=== PATIENT | male | born 1945 | race Caucasian/White ===

== ENCOUNTER 2017-06-15 09:52 | Inpatient (IN) ==
[2017-06-15 10:26] LABS: Basophils % 0.3 %; Eosinophils # 0.1 K/mcL (0.0-0.6); Eosinophils % 1.7 %; Hematocrit 42.3 % (37.5-50.1); Hemoglobin 14.2 g/dL (12.9-16.9); Immature Granulocytes % 0.3 % (0-4); Lymphocytes # 1.5 K/mcL (0.6-4.6); Lymphocytes % 24.9 %; Mean Corpuscular HGB Conc 33.6 g/dL (31.6-35.5); Mean Corpuscular Hemoglobin 29.8 pg (28.0-33.3); Mean Corpuscular Volume 88.9 fL (83.0-100.0); Mean Platelet Volume 9.4 fL (9.4-12.4); Monocytes # 0.4 K/mcL (0.0-1.3); Monocytes % 6.1 %; Platelet Count 173 K/mcL (140-400); Red Blood Count 4.76 M/mcL (4.19-5.50); Segmented Neutrophils % 66.7 %
[2017-06-15 10:31] LABS: INR 1.1; Prothrombin Time 12.4 Seconds (9.4-12.1)
[2017-06-15 10:33] LABS: Activated Partial Thrombo Time 34.2 Seconds (26.0-36.0)
[2017-06-15 10:40] LABS: BUN/Creatinine Ratio 24 (6-26); Blood Urea Nitrogen 27 mg/dL (8-26); Carbon Dioxide 25 mEq/L (19-29); Chloride 107 mEq/L (98-109); Glucose 135 mg/dL (70-99); Osmolality,Calculated 299 (280-300); Potassium 4.2 mEq/L (3.5-4.5); Sodium 141 mEq/L (136-145); eGFR For African Americans > 60 (> 60); eGFR For Non-African Americans > 60 (> 60)
[2017-06-15 10:41] LABS: Calcium 9.4 mg/dL (8.6-10.8)
[2017-06-15 10:42] LABS: Albumin 3.7 g/dL (3.5-5.0); Albumin/Globulin Ratio 0.9 (1.1-2.2); Bilirubin,Direct 0.3 mg/dL (0.0-0.5); Bilirubin,Indirect 0.4 mg/dL (0.0-1.2); Bilirubin,Total 0.7 mg/dL (0.2-1.2); Total Protein 7.7 g/dL (6.0-8.3)
[2017-06-15] MEDS ORDERED: 0.9 % Sodium Chloride 1,000 ML IVC ONE (10:42)
--- NOTE | 2017-06-15 10:42 | Emergency Department Note ---
Disposition Clinical Impression: NSTEMI (non-ST elevated myocardial infarction) Disposition: Admitted As Inpatient Condition: Good Referrals: Gareth Ojeda MD [Primary Care Provider] - Forms: ED Satisfaction Letter Time of Disposition: 11:15 Chest Pain HPI - General Chief Complaint: ED Chest Pain Stated Complaint: chest pain Time Seen by Provider: 06/15/17 10:03 Source: patient Limitations: no limitations Vital Signs Reviewed: Yes Nursing Notes Reviewed: Yes - History of Present Illness HPI Narrative: 71 year old male presents to the ED with complaints of left sided chest pain that radaites into his left side of his neck and arm and states that he has multiple stents that were placed over 10-15 years ago at [facility] and states that he has been experiencin incresd exertional dyspnea for exampled hwne he walks from his brohter house to his house which is about 20 feet away. Sam states that he has been taking care of his brother who is currently recoering from a heart attack as well. Sam is currently chest pain free although these symptoms started about 36 hours ago. Sam states that he aso has been nauseated with these chest pain and denies diaphreosis. Severity scale (1-10): 2 - Related Data Home Medications Medication Instructions Recorded Confirmed Cholecalciferol (Vitamin D3) 10,000 unit PO MO 12/01/16 12/01/16 [Vitamin D3] Clopidogrel [Plavix] 75 mg PO DAILY 12/01/16 12/01/16 Lisinopril [Zestril] 10 mg PO DAILY 12/01/16 12/01/16 Metoprolol [Lopressor] 25 mg PO BID 12/01/16 12/01/16 Nitroglycerin [Nitrostat] 0.4 mg SL Q5M PRN 12/01/16 12/01/16 diazePAM [Valium] 5 mg PO TID 12/01/16 12/01/16 Previous Rx's Medication Instructions Recorded Aspirin Enteric Coated [Aspirin EC] 81 mg PO DAILY #30 tablet. 07/12/16 Atorvastatin [Lipitor] 40 mg PO HS #30 tablet 07/12/16 Lidocaine Patch [Lidoderm 5% patch] 1 each TP DAILY PRN #3 adh..patch 04/12/17 Allergies Allergy/AdvReac Type Severity Reaction Status Date / Time morphine Allergy Hives Verified 06/15/17 10:00 Constitutional: Denies: fever, chills, weakness, weight change Eyes: Denies: eye pain, eye discharge, vision change ENT ED: Denies: ear pain, throat pain, dental pain, hearing loss, epistaxis, congestion, dysphagia Cardiovascular: Reports: chest pain, dyspnea on exertion. Denies: palpitations , edema, syncope Respiratory: Denies: cough, dyspnea, wheezes, hemoptysis, stridor Gastrointestinal: Denies: abdominal pain, nausea, vomiting, diarrhea, constipation, hematemesis, melena, hematochezia Genitourinary: Denies: urgency, dysuria, frequency, hematuria Musculoskeletal: Denies: back pain, neck pain, arthralgia, myalgia Integumentary: Denies: rash, abrasion, lesions Neurological: Denies: headache, weakness, numbness, paresthesias, confusion, abnormal gait, vertigo Psychiatric: Denies: anxiety, depression, suicidal thoughts, homicidal thoughts , auditory hallucinations, visual hallucinations Endocrine: Denies: fatigue Hematological/Lymphatic: Denies: easy bleeding, easy bruising Allergic/Immunologic: Denies: facial swelling, urticaria Chest Pain PMH - Past Medical History Medical history: Reports: cancer, coronary artery disease, hypertension, myocardial infarction Surgical history: Reports: cholecystectomy, other Psychiatric history: Reports: anxiety, depression, PTSD - Social History Smoking Status: Never smoker Alcohol use: Reports: none Drug use: Reports: none Physical Exam - General Limitations: no limitations General appearance: alert, in no apparent distress - Head Head exam: atraumatic, normocephalic, normal inspection - Eye Eye exam: Present: normal appearance, PERRL, EOMI - Expanded Eye Exam Pupils: Left: reactive - ENT ENT exam: normal exam, normal oropharynx, mucous membranes moist - Expanded ENT Exam External ear exam: Present: normal external inspection Mouth exam: Present: normal external inspection Teeth exam: Present: normal inspection Throat exam: Present: normal inspection - Neck Neck exam: Present: normal inspection, full ROM, trachea midline - Chest Chest inspection: Present: normal inspection, symmetric chest wall rise - Respiratory Respiratory exam: Present: normal lung sounds bilaterally - Cardiovascular Cardiovascular exam: Present: regular rate, normal rhythm, normal heart sounds - Abdominal Exam Abdominal exam: Present: soft, Non-Tender. Absent: tenderness, distention, guarding, rebound, rigidity - Extremities Exam Extremities exam: Present: normal inspection, full ROM. Absent: tenderness, pedal edema - Expanded Upper Extremity Exam Shoulder exam: Present: normal inspection, full ROM Arm exam: Present: normal inspection, full ROM Elbow exam: Present: normal inspection, full ROM Forearm/Wrist exam: Present: normal inspection, full ROM Hand exam: Present: normal inspection, full ROM Vascular exam: Normal: capillary refill, radial pulse - Expanded Lower Extremity Exam Hip/Pelvis exam: Present: normal inspection, full ROM Upper leg exam: Present: normal inspection, full ROM Knee exam: Present: normal inspection, full ROM Lower leg exam: Present: normal inspection, full ROM Ankle exam: Present: normal inspection, full ROM Foot/toe exam: Present: normal inspection, full ROM Neurovascular/Tendon exam: Absent: motor deficit, sensory deficit, tendon deficit - Back Exam Back exam: Present: normal inspection, full ROM. Absent: tenderness - Neurological Exam Neurological exam: Present: alert, oriented X3 - Expanded Neurological Exam Patient oriented to: Present: person, place, time Coma Scale Eye Opening: Spontaneous Coma Scale Motor Response: Obeys Commands Coma Scale Verbal Response: Oriented Coma Scale Total: 15 - Psychiatric Psychiatric exam: Present: normal affect, normal mood - Skin Skin exam: Present: warm, dry, intact, normal color Course Course Narrative: we will do cardiopulmonary workup including a troponin, highly suspicious for unstable angina. - Reevaluation(s) Reevaluation #1: sam troponin level is 0.28, we will start heparin drip for low dose ACS and consult cardiology. Time: 11:06 - Consultations Consultation #1: discusse case with Dr. Colin and he does not think sam will need nitro drip at this time because he is pain free. WE will admit to medicine with consult to cards. Time: 11:15 Consultation #2: discussed case with Dr. Kumar and he accepts sam for admisison. Time: 11:15 Vital Signs Temperature 98.2 F 06/15/17 09:52 Pulse Rate 71 06/15/17 09:52 Respiratory Rate 18 06/15/17 09:52 Blood Pressure 136/81 06/15/17 09:52 O2 Sat by Pulse Oximetry 97 06/15/17 09:52 Temperature 98.2 F 06/15/17 09:52 Pulse Rate 67 06/15/17 11:00 Respiratory Rate 20 06/15/17 11:00 Blood Pressure 129/77 06/15/17 11:00 O2 Sat by Pulse Oximetry 98 06/15/17 11:00 Oxygen Delivery Oxygen Delivery Room Air Chest Pain - Medical Records Medical records reviewed: Yes I reviewed the patient's medical records. - Lab Data Lab results reviewed: Yes I reviewed the patient's lab results. Result diagrams: 06/15/17 10:13 06/15/17 10:13 Lab Results 06/15/17 06/15/17 06/15/17 Range/Units 10:13 10:13 10:13 WBC (4.3-11.1) K/mcL RBC (4.19-5.50) M/mcL Hgb (12.9-16.9) g/dL Hct (37.5-50.1) % MCV (83.0-100.0) fL MCH (28.0-33.3) pg MCHC (31.6-35.5) g/dL RDW (11.5-14.5) % Plt Count (140-400) K/mcL MPV (9.4-12.4) fL Immature Gran % (0-4) % Seg Neutrophils % % Lymphocytes % % Monocytes % % Eosinophils % % Basophils % % Neutrophils # (1.6-8.9) K/mcL Lymphocytes # (0.6-4.6) K/mcL Monocytes # (0.0-1.3) K/mcL Eosinophils # (0.0-0.6) K/mcL Basophils # (0.0-0.2) K/mcL PT 12.4 H (9.4-12.1) Seconds INR 1.1 APTT 34.2 (26.0-36.0) Seconds Sodium (136-145) mEq/L Potassium (3.5-4.5) mEq/L Chloride (98-109) mEq/L Carbon Dioxide (19-29) mEq/L BUN (8-26) mg/dL Creatinine (0.72-1.25) mg/dL Est GFR ( Amer) (> 60) Est GFR (Non-Af Amer) (> 60) BUN/Creatinine Ratio (6-26) Glucose (70-99) mg/dL Calculated Osmolality (280-300) Calcium (8.6-10.8) mg/dL Total Bilirubin 0.7 (0.2-1.2) mg/dL Direct Bilirubin 0.3 (0.0-0.5) mg/dL Indirect Bilirubin 0.4 (0.0-1.2) mg/dL AST 23 (5-34) Units/L ALT 19 (0-55) Units/L Alkaline Phosphatase 90 (38-126) Units/L Troponin I (0-0.03) ng/mL B-Natriuretic Peptide 438 H (0-100) pg/mL Serum Total Protein 7.7 (6.0-8.3) g/dL Albumin 3.7 (3.5-5.0) g/dL Globulin 4.0 H (2.4-3.5) g/dL Albumin/Globulin Ratio 0.9 L (1.1-2.2) Lipase 48 (8-78) Units/L 06/15/17 06/15/17 06/15/17 Range/Units 10:13 10:13 10:13 WBC 5.9 (4.3-11.1) K/mcL RBC 4.76 (4.19-5.50) M/mcL Hgb 14.2 (12.9-16.9) g/dL Hct 42.3 (37.5-50.1) % MCV 88.9 (83.0-100.0) fL MCH 29.8 (28.0-33.3) pg MCHC 33.6 (31.6-35.5) g/dL RDW 12.0 (11.5-14.5) % Plt Count 173 (140-400) K/mcL MPV 9.4 (9.4-12.4) fL Immature Gran % 0.3 (0-4) % Seg Neutrophils % 66.7 % Lymphocytes % 24.9 % Monocytes % 6.1 % Eosinophils % 1.7 % Basophils % 0.3 % Neutrophils # 4.0 (1.6-8.9) K/mcL Lymphocytes # 1.5 (0.6-4.6) K/mcL Monocytes # 0.4 (0.0-1.3) K/mcL Eosinophils # 0.1 (0.0-0.6) K/mcL Basophils # 0.0 (0.0-0.2) K/mcL PT (9.4-12.1) Seconds INR APTT (26.0-36.0) Seconds Sodium 141 (136-145) mEq/L Potassium 4.2 (3.5-4.5) mEq/L Chloride 107 (98-109) mEq/L Carbon Dioxide 25 (19-29) mEq/L BUN 27 H (8-26) mg/dL Creatinine 1.14 (0.72-1.25) mg/dL Est GFR ( Amer) > 60 (> 60) Est GFR (Non-Af Amer) > 60 (> 60) BUN/Creatinine Ratio 24 (6-26) Glucose 135 H (70-99) mg/dL Calculated Osmolality 299 (280-300) Calcium 9.4 (8.6-10.8) mg/dL Total Bilirubin (0.2-1.2) mg/dL Direct Bilirubin (0.0-0.5) mg/dL Indirect Bilirubin (0.0-1.2) mg/dL AST (5-34) Units/L ALT (0-55) Units/L Alkaline Phosphatase (38-126) Units/L Troponin I 0.28 H* (0-0.03) ng/mL B-Natriuretic Peptide (0-100) pg/mL Serum Total Protein (6.0-8.3) g/dL Albumin (3.5-5.0) g/dL Globulin (2.4-3.5) g/dL Albumin/Globulin Ratio (1.1-2.2) Lipase (8-78) Units/L - Radiology Data Radiology results reviewed: Yes I reviewed the patient's radiology results. - EKG Data EKG attestation: Yes I reviewed and interpreted this EKG. EKG results narrative: NSR with rate of 80. NO STEMI. normla intervlas. no change from 111/26/16. 1003 Heart Score - Score History: Moderately Suspicious EKG: Normal Age: Greater than 65 Risk Factors: Equal/Greater than 3 risk factor or history of atherosclerotic disease Troponin: Greater than 3x normal limit HEART Score Total: 7
[2017-06-15] MEDS ORDERED: Aspirin 325 MG TABLET PO ONE (10:43)
[2017-06-15] MEDS ORDERED: *HR* Heparin 5,000 UNIT/ML VIAL IVP ONE (10:56)
[2017-06-15] MEDS ORDERED: *HR* Heparin 5,000 UNIT/ML VIAL IVP PRN ×2 (10:56)
[2017-06-15] MEDS ORDERED: Heparin 25,000 UNIT/500 ML D5W 25,000 UNIT/500 ML MLS IVC SCH (11:00)
[2017-06-15] MEDS ORDERED: Nitroglycerin 0.4 MG TAB.SUBL SL PRN (13:37)
[2017-06-15] MEDS ORDERED: Naloxone 0.4 MG/ML INJ IVP PRN (13:39)
--- NOTE | 2017-06-15 14:01 | Internal Med History&Physical ---
<AbhijitmichelaEdin singh Tobin - Last Filed: 06/15/17 20:29> Date of Encounter: 06/15/17 Internal Medicine - H&P: HPI History of present illness: Mr. Moran is a 71 year old male Internal Medicine - H&P: Meds Aspirin Enteric Coated [Aspirin EC] 81 mg PO DAILY #30 tablet. 07/12/16 [Rx] Cholecalciferol (Vitamin D3) [Vitamin D3] 10,000 unit PO MO 12/01/16 [History] Clopidogrel [Plavix] 75 mg PO DAILY 12/01/16 [History] Lisinopril [Zestril] 10 mg PO DAILY 12/01/16 [History] Metoprolol [Lopressor] 25 mg PO BID 12/01/16 [History] Nitroglycerin [Nitrostat] 0.4 mg SL Q5M PRN 12/01/16 [History] diazePAM [Valium] 5 mg PO TID 12/01/16 [History] Gabapentin [Neurontin] 300 mg PO QPM 06/15/17 [History] Isosorbide MONOnitrate (24 HR) [Imdur] 30 mg PO DAILY 06/15/17 [History] Paroxetine HCl [Paxil] 40 mg PO DAILY 06/15/17 [History] Tamsulosin [Flomax] 0.4 mg PO DAILY 06/15/17 [History] 3 Allergy/AdvReac Type Severity Reaction Status Date / Time morphine Allergy Hives Verified 06/15/17 10:00 All Systems PM: A 10-system review of systems was performed and is negative for pertinent findings except as documented above in the HPI. - Constitutional Vitals: Temp Pulse Resp BP Pulse Ox 98.2 F 72 20 127/116 99 06/15/17 09:52 06/15/17 17:58 06/15/17 14:14 06/15/17 14:14 06/15/17 17:54 Internal Med - H&P Results - Labs CBC & Chem 7: 06/15/17 10:13 06/15/17 10:13 Labs: Cardiac Enzymes 06/15/17 Range/Units 17:10 Troponin I 0.41 H* (0-0.03) ng/mL - Attending Attestation I have personally performed face to face evaluation on this patient. I have reviewed and agree with the care plan. History and Exam by me shows: <Rome Zaidi - Last Filed: 06/15/17 22:07> Date of Encounter: 06/15/17 Time of Encounter: 13:55 Assessment and Plan (1) NSTEMI (non-ST elevated myocardial infarction) Current visit: Yes Status: Acute H/o CAD requiring multiple stents. Strong family h/o CAD.Denies an CP while at rest but notes CP with exertion, no respiratory distress. Hemodynamically stable. Heparin gtt started Will hold on nitro as the patient denies CP at rest. Cardio consulted; still needs to see, anticipating [facility] restart ASA, BB, ALDAIR, plavix, and Imdur SL nitro for CP serial troponins echocardiogram continuous tele, SPO2, respiratory support O2 NC prn CBC, CMP in morning (2) HTN (hypertension) Current visit: Yes Status: Chronic H/O HTN. Remains hemodynamically stable, in no distress at this time. Restart Imdur, ALDAIR, and BB Qualifiers: Hypertension type: essential hypertension Qualified Code(s): I10 - Essential (primary) hypertension (3) CAD (coronary artery disease) Current visit: No Status: Chronic h/o CAD with multiple stents. Troponin elevated in the setting of CP. Likely NSTEMI, anticipate [facility], cardio to see. Restart BB, ALDAIR, Plavix, Imdur and ASA. Qualifiers: Coronary Disease-Associated Artery/Lesion type: [place] artery [place] vs. transplanted heart: [place] heart Associated angina: without angina Qualified Code(s): I25.10 - Atherosclerotic heart disease of [place] coronary artery without angina pectoris (4) DVT prophylaxis Current visit: Yes Status: Acute On a heparin gtt for NSTEMI. Start SC prophylaxis when heparin gtt DC'D Internal Medicine - H&P: HPI Chief complaint: CHEST PAIN Admitted From: Home Plans for Post Hospital Care: Home History of present illness: Mr. Moran is a 71 year old male with a PMH of CAD, HTN, anxiety/depression and [place] with multiple stents. Presents to [facility] today with a 2 day h/o sharp left sided CP 7/10 with radiation to the left neck and arm. He reports that he is increasingly dyspneic with exertion, the CP is worse with activity and eases with rest. Denies any diaphoresis, extremity swelling, weight gain, cough, fevers, or chills. His trop was elevated at 0.28, Past Med Surg Social Fam HX - Past Medical History Medical history: cancer, coronary artery disease, hypertension, myocardial infarction Psychiatric history: anxiety, depression, PTSD - Past Surgical History Surgical History: cholecystectomy, other - Social History Smoking Status: Never smoker Smokeless Tobacco Status: No Alcohol use: none Drug use: none - Family History Mother Adopted: No Family Member Ethnicity: Non- Living Status: Hx Family Cardiac Disorders: Yes Hx Family Respiratory Disorders: No Hx Family Cancer: Yes Hx Family GI Disorders: No Hx Family Endocrine Disorder: No Hx Family Neuromuscular Disorders: No Hx Family Neurologic Disorders: No Hx Family HEENT Disorders: No Hx Family Autoimmune Disorders: No Brother Race: Family Member Ethnicity: Non- Hx Family Cardiac Disorders: Yes ([place]) Hx Family Endocrine Disorder: Yes (DM) All Systems PM: A 10-system review of systems was performed and is negative for pertinent findings except as documented above in the HPI. - Constitutional Constitutional: no chills, no excessive sweating, no fatigue, no fever(s), no night sweats, no weakness, no weight gain, no weight loss - EENT Nose, mouth and throat: no dysphagia, no nasal discharge, no neck pain, no sore throat - Cardiovascular Cardiovascular ROS IM: as per HPI, chest pain, dyspnea on exertion, no edema, no irregular heart rhythm, no lightheadedness, no orthopnea, no palpitations, no syncope - Respiratory Respiratory: as per HPI, dyspnea on exertion, no cough, no dyspnea, no wheezing , no pain on inspiration, no chest congestion, no excessive phlegm production, no pain with cough - Gastrointestinal Gastrointestinal: no abdominal pain, no diarrhea, no hematemesis, no hematochezia, no melena, no nausea, no vomiting - Genitourinary Genitourinary ROS male: no dysuria - Musculoskeletal Musculoskeletal ROS IM: no numbness, no tingling - Neurological Neurological ROS: no confusion, no convulsions, no focal weakness, no numbness, no tingling, no tremor(s) - Constitutional Vitals: Temp Pulse Resp BP Pulse Ox 98.2 F 68 20 151/84 99 06/15/17 09:52 06/15/17 13:00 06/15/17 13:00 06/15/17 13:00 06/15/17 13:00 General appearance: Present: cooperative, A&O X 3, no acute distress, answers questions appropriately - Head Head exam: Present: atraumatic, normocephalic - Eye Eye exam: Present: PERRL, conjuntiva pink, sclera anicteric Pupils: Present: PERRL - Neck Neck exam general surgery: Present: supple, trachea midline. Absent: lymphadenopathy - Respiratory Respiratory exam: Present: decreased breath sounds (BL posterior bases), CTAB. Absent: accessory muscle use, rales, rhonchi, wheezes - Cardiovascular Cardiovascular exam: Present: RRR, +S1, +S2. Absent: diastolic murmur, gallop, irregular rhythm, JVD, rubs, systolic murmur - GI/Abdominal GI/Abdominal exam: Present: normal bowel sounds, soft, no peritoneal signs. Absent: distended, tenderness - Extremities Exam Extremities exam: Present: warm, radial pulses palpable and symmetrical. Absent : calf tenderness, cyanotic, pedal edema - Neurological Exam Neurological exam: Present: CN II-XII intact, oriented X3, no focal deficits. Absent: pronater drift, facial droop, speech deficit - Skin Skin exam: Present: dry, intact Internal Med - H&P Results - Labs CBC & Chem 7: 06/15/17 10:13 06/15/17 10:13 - EKG Data -: EKG Interpreted by Myself EKG shows normal: sinus rhythm - EKG Data When compared to previous EKG: there is no significant change - Diagnostic Studies Chest x-ray Status: image reviewed by me Additional comments: no acute pulmonary process
--- NOTE | 2017-06-15 14:34 | Cardiology Consult Note ---
Date of Encounter: 06/15/17 Time of Encounter: 14:34 Assessment and Plan (1) NSTEMI (non-ST elevated myocardial infarction) Current Visit: Yes Status: Acute NSTEMI in the setting of underlying CAD/stable angina history Troponin 0.28 EKG review showing NSR, no T wave or ST changes Hemodynamically stable, No arrhythmias or acute, severe ischemic cardiomyopathy suggesting urgent intervention Restarted home meds - ASA, Plavix, ACEi, Lopressor. Patient not taking statin d /t cost. Continue medical management with Heparin Drip Cardiac monitoring, Telemetry Will plan for [facility] tomorrow if patient is agreeable. (2) CAD (coronary artery disease) Current Visit: No Status: Chronic 2005: Heart cath demonstrated proximal LAD 50%, mid LAD 60%, diagonal 1 90%, mid RCA 70%, PDA 80-90% and stenting to OM1 100% lesion - Patient declined CABG at that time 2010: Abnormal stress test - Refused further intervention 09/24/16: Nuclear stress test performed on 09/24/16 showing EF 45%, mild systolic dysfunction with a medium-large sized, sever intensity, fixed perfusion defect involving the basal-mid inferolateral wall, basal-mid anterolateral wall and apical lateral wall. No evidence of reversible myocardial ischemia Patient is currently taking Plavix 75, ASA 81, Zestril 10, Atorvastatin 80 (not taking d/t cost), Metoprolol Tartate 25mg BID See above for NSTEMI management. Qualifiers: Coronary Disease-Associated Artery/Lesion type: [place] artery [place] vs. transplanted heart: [place] heart Associated angina: without angina Qualified Code(s): I25.10 - Atherosclerotic heart disease of [place] coronary artery without angina pectoris (3) HTN (hypertension) Current Visit: Yes Status: Chronic Appears to be stable at this time. Qualifiers: Hypertension type: essential hypertension Qualified Code(s): I10 - Essential (primary) hypertension (4) Dyslipidemia Current Visit: Yes Status: Acute Not currently taking Atorvastatin 80 d/t cost Discussion w patient/family: The assessment and plan as outlined above was discussed with the patient and/or family members who expressed understanding and agreement. All questions were answered. Thank you for involving us in the care of your patient. Please call with any questions. History of Present Illness Consult date: 06/15/17 Chief complaint: chest pain History of present illness: Mr. Moran is a very pleasant 71 year old male with a past medical history of CAD, dyslipidemia, HTN, RADHA, anxiety, depression and BPH who presented to the [facility] ED with a chief complaint of chest pain. Patient drove himself to the ED after one week of worsening chest pain on exertion when he walks to his brother' s trailer to take care of him. Reports the pain is burning in nature and radiates to his neck and left arm. He goes on to state the pain subsides at rest and only occurs on exertion. Denies any lightheadedness, n/v, palpitations or diaphoresis. He reports having a prescription for nitro but refused to take this before coming into the ED. On arrival, his trop 0.28, BNP 438 and EKG was NSR without any T wave or ST changes. Patient was given ASA, fluids and heparin drip. He was subsequently admitted via the hospitalist service and cardiology was consulted. On evaluation and EMR review, heart cath in 2005 demonstrated proximal LAD 50%, mid LAD 60%, diagonal 1 90%, mid RCA 70% , PDA 80-90% and stenting to OM1 100% lesion, however patient declined CABG at that time. History of abnormal stress test in 2009 and he again refused further intervention. Most recent report shows a nuclear stress test performed on 09/24/16 showing EF 45%, mild systolic dysfunction with a medium-large sized, sever intensity, fixed perfusion defect involving the basal-mid inferolateral wall, basal-mid anterolateral wall and apical lateral wall. No evidence of reversible myocardial ischemia. Denies any tobacco or EtOH use. Father at 67 of heart disease and mother at 94 of heart disease. Patient has been following Tim Tovar CNP for several years now here in [facility]. We will continue to follow and offer further recommendations and interventions. Past Med Surg Social Fam HX - Past Medical History Medical history: cancer, coronary artery disease, hypertension, myocardial infarction Psychiatric history: anxiety, depression, PTSD - Past Surgical History Surgical History: cholecystectomy, other - Social History Smoking Status: Never smoker Smokeless Tobacco Status: No Alcohol use: none Drug use: none - Family History Brother Race: Family Member Ethnicity: Non- Hx Family Cardiac Disorders: Yes (CO) Hx Family Endocrine Disorder: Yes (DM) Mother Adopted: No Family Member Ethnicity: Non- Living Status: Hx Family Cardiac Disorders: Yes Hx Family Respiratory Disorders: No Hx Family Cancer: Yes Hx Family GI Disorders: No Hx Family Endocrine Disorder: No Hx Family Neuromuscular Disorders: No Hx Family Neurologic Disorders: No Hx Family HEENT Disorders: No Hx Family Autoimmune Disorders: No Medications and Allergies Aspirin Enteric Coated [Aspirin EC] 81 mg PO DAILY #30 tablet. 07/12/16 [Rx] Cholecalciferol (Vitamin D3) [Vitamin D3] 10,000 unit PO MO 12/01/16 [History] Clopidogrel [Plavix] 75 mg PO DAILY 12/01/16 [History] Lisinopril [Zestril] 10 mg PO DAILY 12/01/16 [History] Metoprolol [Lopressor] 25 mg PO BID 12/01/16 [History] Nitroglycerin [Nitrostat] 0.4 mg SL Q5M PRN 12/01/16 [History] diazePAM [Valium] 5 mg PO TID 12/01/16 [History] Gabapentin [Neurontin] 300 mg PO QPM 06/15/17 [History] Isosorbide MONOnitrate (24 HR) [Imdur] 30 mg PO DAILY 06/15/17 [History] Paroxetine HCl [Paxil] 40 mg PO DAILY 06/15/17 [History] Tamsulosin [Flomax] 0.4 mg PO DAILY 06/15/17 [History] 3 Allergy/AdvReac Type Severity Reaction Status Date / Time morphine Allergy Hives Verified 06/15/17 10:00 All Systems Review: A 10-system review of systems was performed and is negative for pertinent findings except as documented above in the HPI. - Constitutional Constitutional: no headache(s) - Cardiovascular Cardiovascular: as per HPI - Respiratory Respiratory: no cough - Gastrointestinal Gastrointestinal: no abdominal pain - Genitourinary Genitourinary: no dysuria - Musculoskeletal Musculoskeletal: no myalgias - Integumentary Integumentary: no erythema - Neurological Neurological: no abnormal speech - Psychiatric Psychiatric: anxiety Physical Examination Vital Signs, Last 4 Hours Pulse Resp BP Pulse Ox 06/15/17 14:14 20 127/116 06/15/17 13:00 68 20 151/84 99 06/15/17 12:30 68 20 148/83 98 General: Conversant (sitting up on bed), No Apparent Distress HEENT: Atraumatic, Normocephaly, Mucus Membranes Moist Neck: No JVD, Normal carotid pulses Cardiac: Reg Rate and Rhythm, Normal S1 and S2, No Murmur Lungs: Normal Breath Sounds, No Wheeze, Rales, Rhonchi Neuro: Alert and responsive, No focal deficits noted Abdomen: Soft, Non-Tender Skin: No rashes noted on visualized skin Musculoskeletal: No Chest Wall Tenderness Extremities: No Clubbing, No Cyanosis, No Edema, Normal Pulses Results 06/15/17 10:13 06/15/17 10:13 - Imaging and Cardiology Chest Xray: report reviewed, image reviewed Stress Test: report reviewed (09/24/16) Echo: report reviewed (09/24/16) - EKG Interpretation EKG results cardiology: personally reviewed, normal ECG Consult Discharge Plan - Plan Referrals: Gareth Ojeda MD [Primary Care Provider] -
[2017-06-15] MEDS: diazePAM 5 MG TABLET PO SCH ×2 (16:47→20:21)
[2017-06-15] MEDS: Gabapentin 300 MG CAPSULE PO SCH (16:47)
--- NOTE | 2017-06-15 17:21 | Electrocardiograph Report ---
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
[2017-06-16 06:11] LABS: Basophils % 0.3 %; Eosinophils # 0.1 K/mcL (0.0-0.6); Eosinophils % 1.9 %; Hematocrit 42.8 % (37.5-50.1); Hemoglobin 14.4 g/dL (12.9-16.9); Immature Granulocytes % 0.3 % (0-4); Lymphocytes # 2.1 K/mcL (0.6-4.6); Lymphocytes % 35.1 %; Mean Corpuscular HGB Conc 33.6 g/dL (31.6-35.5); Mean Corpuscular Hemoglobin 30.1 pg (28.0-33.3); Mean Corpuscular Volume 89.4 fL (83.0-100.0); Mean Platelet Volume 9.4 fL (9.4-12.4); Monocytes # 0.4 K/mcL (0.0-1.3); Neutrophils # 3.3 K/mcL (1.6-8.9); Platelet Count 174 K/mcL (140-400); Red Blood Count 4.79 M/mcL (4.19-5.50); Red Cell Distribution Width 12.1 % (11.5-14.5); Segmented Neutrophils % 55.4 %
[2017-06-16 06:33] LABS: Alanine Aminotransferase 19 Units/L (0-55); Albumin 3.5 g/dL (3.5-5.0); Albumin/Globulin Ratio 0.9 (1.1-2.2); Alkaline Phosphatase 91 Units/L (38-126); Aspartate Amino Transferase 21 Units/L (5-34); BUN/Creatinine Ratio 24 (6-26); Bilirubin,Total 0.5 mg/dL (0.2-1.2); Blood Urea Nitrogen 26 mg/dL (8-26); Calcium 9.5 mg/dL (8.6-10.8); Carbon Dioxide 26 mEq/L (19-29); Chloride 106 mEq/L (98-109); Globulin 4.1 g/dL (2.4-3.5); Glucose 98 mg/dL (70-99); Osmolality,Calculated 297 (280-300); Potassium 4.3 mEq/L (3.5-4.5); Sodium 141 mEq/L (136-145); Total Protein 7.6 g/dL (6.0-8.3); eGFR For African Americans > 60 (> 60); eGFR For Non-African Americans > 60 (> 60)
[2017-06-16] MEDS: Isosorbide MONOnitrate (24 HR) 30 MG TAB.ER.24H PO SCH (08:35)
[2017-06-16] MEDS: diazePAM 5 MG TABLET PO SCH ×3 (08:35→20:29)
[2017-06-16] MEDS: Aspirin Enteric Coated 81 MG Tablet PO SCH (08:35)
[2017-06-16] MEDS ORDERED: Heparin 1,000 UNITS/500 mL NS 500 ML ONE (09:04)
[2017-06-16] MEDS ORDERED: *HR* Heparin 10,000 UNIT/10 ML VIAL ONE (09:04)
[2017-06-16] MEDS ORDERED: 0.9 % Sodium Chloride 1,000 ML ONE ×2 (09:04→09:49)
[2017-06-16] MEDS ORDERED: Nitroglycerin 1,000 MCG/10 ML VIAL IV ONE (09:39)
[2017-06-16] MEDS ORDERED: *HR* Midazolam HCl 2 MG/2 ML VIAL ONE (09:56)
[2017-06-16] MEDS ORDERED: Tirofiban 5 MG/100ML 5 MG/100 ML BAG IV ONE (10:21)
[2017-06-16] MEDS ORDERED: *HR* Ticagrelor 90 MG TABLET ONE (11:22)
--- NOTE | 2017-06-16 11:30 | Pre-Sedation Evaluation ---
Pre-sedation evaluation - Pre-sedation checklist Date of procedure: 06/16/17 Procedure: HEART CATH Recent Vitals: Last Vital Signs Temp 97.8 F 06/16/17 08:45 Pulse 70 06/16/17 08:45 Resp 16 06/16/17 08:45 BP 137/70 06/16/17 08:45 Pulse Ox 100 06/16/17 08:45 H&P (including ROS) documented in medical record: Yes Previous reaction to sedatives/anesthetics: No Dietary Status: NPO after Midnight Airway Assessment: Patient can open mouth completely, TMJ function normal Dentition: dentures removed Possible difficult airway: No ASA Classification *see protocol: CLASS II-Mild systemic disease Plan of Care: Pt appropriate candidate for procedure/moderate/conscious sedation
--- NOTE | 2017-06-16 11:48 | Internal Med Progress Note ---
<Abhinav Aguila - Last Filed: 06/16/17 13:38> Date of Encounter: 06/16/17 Time of Encounter: 11:47 - Assessment and plan (1) NSTEMI (non-ST elevated myocardial infarction) Current Visit: Yes Status: Acute Assessment and plan: s/p C today with OK to mid LAD and multivessel PTCA; patient tolerated procedure well without complications Cardiology consulted, recommended DAPT and continuing ACEi, BB, Imdur Patient does have financial issues affording his statin so social work has been consulted for assistance Plan on DC tomorrow if he remains chest pain free without other overnight events (2) CAD (coronary artery disease) Current Visit: Yes Status: Chronic Assessment and plan: Currently not in chest pain s/p [facility] Continue medical management as above per cardiology Qualifiers: Coronary Disease-Associated Artery/Lesion type: [place] artery [place] vs. transplanted heart: [place] heart Associated angina: without angina Qualified Code(s): I25.10 - Atherosclerotic heart disease of [place] coronary artery without angina pectoris (3) 3-vessel coronary artery disease Current Visit: Yes Status: Chronic Assessment and plan: According to cardiology patient was recommended for CABG but previously declined Will continue medical management as above (4) HTN (hypertension) Current Visit: Yes Status: Chronic Assessment and plan: Blood pressures well controlled today Continue ACEi and BB Qualifiers: Hypertension type: essential hypertension Qualified Code(s): I10 - Essential (primary) hypertension (5) Anxiety Current Visit: Yes Status: Chronic Assessment and plan: Not currently experiencing acute anxiety attacks Continue home Valium and Paxil (6) DVT prophylaxis Current Visit: Yes Status: Acute Assessment and plan: Heparin 5000 units TID - Subjective Interval history: Pt seen and examined. He just returned from his [facility] and states that his chest pain has since resolved and he has no issues with breathing. He denies any fevers, nausea, vomiting, diarrhea or constipation. He does live with his girlfriend and brother and reports no issues with ADL. - Constitutional Vitals: Temp Pulse Resp BP Pulse Ox 97.8 F 70 16 137/70 100 06/16/17 08:45 06/16/17 08:45 06/16/17 08:45 06/16/17 08:45 06/16/17 08:45 General appearance: Present: cooperative, no acute distress, answers questions appropriately - Head Head exam: Present: atraumatic, normocephalic - Eye Eye exam: Present: PERRL, conjuntiva pink, sclera anicteric - Neck Neck exam general surgery: Present: supple, trachea midline. Absent: lymphadenopathy - Respiratory Respiratory exam: Present: CTAB. Absent: accessory muscle use, rales, rhonchi, wheezes - Cardiovascular Cardiovascular exam: Present: RRR, +S1, +S2. Absent: diastolic murmur, gallop, rubs, systolic murmur - GI/Abdominal GI/Abdominal exam: Present: normal bowel sounds, soft, no peritoneal signs. Absent: distended, tenderness - Extremities Exam Extremities exam: Present: warm, radial pulses palpable and symmetrical. Absent : calf tenderness, cyanotic, pedal edema - Neurological Exam Neurological exam: Present: alert, no focal deficits. Absent: facial droop, speech deficit - Skin Skin exam: Present: dry, intact Internal Medicine: Result - Labs CBC & Chem 7: 06/16/17 05:51 06/16/17 05:51 Labs: Short CBC 06/16/17 Range/Units 05:51 WBC 5.9 (4.3-11.1) K/mcL Hgb 14.4 (12.9-16.9) g/dL Hct 42.8 (37.5-50.1) % Plt Count 174 (140-400) K/mcL Neutrophils # 3.3 (1.6-8.9) K/mcL BMP 06/16/17 05:51 Sodium 141 Potassium 4.3 Chloride 106 Carbon Dioxide 26 BUN 26 Creatinine 1.07 Glucose 98 Calcium 9.5 Cardiac Enzymes 06/15/17 06/15/17 06/16/17 Range/Units 17:10 22:40 05:51 Troponin I 0.41 H* 0.37 H* 0.25 H* (0-0.03) ng/mL Liver Function 06/16/17 Range/Units 05:51 Total Bilirubin 0.5 (0.2-1.2) mg/dL AST 21 (5-34) Units/L ALT 19 (0-55) Units/L Alkaline Phosphatase 91 (38-126) Units/L Albumin 3.5 (3.5-5.0) g/dL - ABG Interpretation ABG results: PT/INR, D-dimer PT 12.4 Seconds (9.4-12.1) H 06/15/17 10:13 Consult Discharge Plan - Plan Referrals: Gareth Ojeda MD [Primary Care Provider] - <Iglesia Winslow - Last Filed: 06/16/17 17:11> Date of Encounter: 06/16/17 - Constitutional Vitals: Temp Pulse Resp BP Pulse Ox 98 F 65 18 107/57 98 06/16/17 15:00 06/16/17 16:15 06/16/17 15:00 06/16/17 16:15 06/16/17 16:15 Internal Medicine: Result - Labs CBC & Chem 7: 06/16/17 05:51 06/16/17 05:51 Labs: Short CBC 06/16/17 Range/Units 05:51 WBC 5.9 (4.3-11.1) K/mcL Hgb 14.4 (12.9-16.9) g/dL Hct 42.8 (37.5-50.1) % Plt Count 174 (140-400) K/mcL Neutrophils # 3.3 (1.6-8.9) K/mcL BMP 06/16/17 05:51 Sodium 141 Potassium 4.3 Chloride 106 Carbon Dioxide 26 BUN 26 Creatinine 1.07 Glucose 98 Calcium 9.5 Cardiac Enzymes 06/15/17 06/15/17 06/16/17 Range/Units 17:10 22:40 05:51 Troponin I 0.41 H* 0.37 H* 0.25 H* (0-0.03) ng/mL Liver Function 06/16/17 Range/Units 05:51 Total Bilirubin 0.5 (0.2-1.2) mg/dL AST 21 (5-34) Units/L ALT 19 (0-55) Units/L Alkaline Phosphatase 91 (38-126) Units/L Albumin 3.5 (3.5-5.0) g/dL - ABG Interpretation ABG results: PT/INR, D-dimer PT 12.4 Seconds (9.4-12.1) H 06/15/17 10:13 - Attending Attestation I examined this patient and my medical decision-making was reviewed with the Resident Physician. I agree with the documented findings, disposition and treatment plan as described except to the extent set forth below. Mr. Moran is a 71 year old male with a PMH of CAD, HTN, anxiety/depression and RI with multiple stents. Presents to [facility] today with a 2 day h/o sharp left sided CP 7/10 with radiation to the left neck and arm. Pt was amditted in the hospital and placed him on heparin gtt and trended on troponin. He went to [facility] this morning had OK to mid LAD and multivessel PTCA. Currently pt is CP free. Cont DAPT, Statin and BB and Imdur. Need close f/u with card as an out pt. If he becomes symptomatic needed stage PCI of RCA
--- NOTE | 2017-06-16 11:48 | Invasive Diagnostic Lab Proc ---
Name: José Miguel Moran Date of Study: 06/16/2017 Date: 1945 Ht: 70.9in Medical Record#: [id number] Age: 71 Wt: 190.04lb Gender: Male BSA: 2.06 Order #: [id number] BMI: 26.6 Physicians Procedure Physician: Jasmin Robbins MD Referring MD: Referring MD: Staff Name Position Time In Keegan Delacruz RT (R) Scrub 09:55 AM Ciara Duke RN Director Of Rehabilitation 09:56 AM Armando Manning RN Monitor 09:56 AM Indications Indication Non-Stemi Coronary Artery Disease Procedures Performed Procedure L HRT ARTERY/VENTRICLE ANGIO PRQ CARD BM STENT W/ANGIO 1 VSL PRQ CARDIAC ANGIO ADDL ART PRQ CARDIAC ANGIO ADDL ART Pre-Procedure Checklist Informed consent is complete signed and on chart. H&P is on chart. ID band is on and ID verified with patient. Patient NPO for procedure The procedure was described for the patient and questions were answered. Blood Pressure: 114/69 ECG is on chart. Rhythm: NSR Plan of Care Patient will tolerate the procedure without complications. Adequate level of comfort will be maintained. Hemodynamics will remain stable Patient will recover from procedure without complications. Respiratory function will be maintained. Cardiac rhythm will remain stable. Patient temperature will be maintained. Patient and/or family have verbalized understanding of the procedure. Patient Education Chief Complaint/Reason for Test: Cardiac Cath Developmental Category: Geriatric (65+ years) Developmentally Appropriate for Age: Yes Learning Barriers: None Education Needs: Procedure Education Method: Verbal Information Taught: Cardiac Cath Educational Evaluation: Able to repeat information Intravenous Access Time IV Size Location DC'd Fluid/Drip Rate Units RN 08:53 AM 18g 1 08/19" Patent On Arrival Rt Antecubital Allergies morphine Opioid Vital Signs Time BP (mmHg) HR (bpm) O2 Sat. RR (bpm) LOC 08:54 AM 114 / 69 65 95 % 16 5 = Fully awake and oriented or at pre-proc level 09:59 AM / % 5 = Fully awake and oriented or at pre-proc level 09:59 AM / % 4 = Oriented but drowsy 10:14 AM / % 4 = Oriented but drowsy 10:29 AM / % 4 = Oriented but drowsy 10:44 AM / % 4 = Oriented but drowsy 11:00 AM / % 4 = Oriented but drowsy 10:41 AM 135 / 75 58 99 % 13 10:46 AM 136 / 79 60 100 % 14 10:51 AM 133 / 81 62 100 % 7 10:56 AM 134 / 78 63 100 % 11 11:01 AM 130 / 79 63 100 % 10 11:06 AM 145 / 85 62 100 % 7 11:11 AM 136 / 87 63 100 % 4 11:16 AM 125 / 81 61 100 % 18 09:56 AM 136 / 72 60 98 % 15 10:01 AM 133 / 77 59 98 % 11 10:06 AM 134 / 79 59 99 % 20 10:11 AM 104 / 72 64 98 % 9 10:16 AM 126 / 71 60 99 % 21 10:21 AM 131 / 77 60 99 % 18 10:26 AM 132 / 77 59 100 % 22 10:31 AM 127 / 75 60 99 % 17 10:36 AM 135 / 80 60 100 % 8 11:15 AM / % 4 = Oriented but drowsy Procedural Medications Time Medication Dose Units Method Given By 09:57 AM Versed 1 mg Intravenous Ciara Duke RN 09:55 AM Oxygen 2 L/min nasal cannula Ciara Duke RN 10:06 AM Lidocaine 2% 10 ml Subcutaneous Jasmin Robbins MD 10:08 AM Lidocaine 2% 10 ml Subcutaneous Jasmin Robbins MD 10:24 AM Aggrastat Bolus: 42 ml Intravenous Ciara Duke RN 10:25 AM Aggrastat 5mg/100ml 15 ml/hr Intravenous Ciara Duke RN 10:25 AM Heparin 3500 units Intravenous Ciara Duke RN 10:48 AM Versed 0.5 mg Intravenous Ciara Duke RN 11:16 AM Lidocaine 2% 10 ml Subcutaneous Jasmin Robbins MD 11:21 AM Brilinta 180 mg Orally Ciara Duke RN Xin Score Preprocedure Postprocedure Activity 2- Moves 4 extremities sustained head lift Activity 2- Moves 4 extremities sustained head lift Circulation 2- SBP +/= 20 points of pre-anesthetic level Circulation 2- SBP +/= 20 points of pre-anesthetic level Consciousness 2- Awake and alert oriented x 3 Consciousness 2- Awake and alert oriented x 3 O2 Saturation 2- Able to maintain O2 satruation of 92% on room air O2 Saturation 2- Able to maintain O2 satruation of 92% on room air Respiratory 2- Able to deep breathe and cough well Respiratory 2- Able to deep breathe and cough well Total Score 10 Total Score 10 Contrast Agent: Isovue Diagnostic Contrast: 255 ml Total Contrast: 255 ml Fluoro Dose: 2670 mGy Activated Clotting Time Time Seconds to Clot 10:22 AM 162 10:45 AM 400 Procedure Log Time Note Enter By 09:41 AM Case Start 09:41 AM CathStat 09:52 AM Physican paged/called 09:52. [email or web address] 09:52 AM Physician arrived 09:52 [email or web address] 09:52 AM Meet and greet completed [email or web address] 09:52 AM Pt arrived to cath lab radiological technologist 2 at 09:52 [email or web address] 09:52 AM Sign in performed according to hospital policy. [email or web address] 09:54 AM Procedure start 09:54 [email or web address] 09:55 AM Patient charges- Angio tray pack, Navilyst 3mm J, Pulse Oximetry and ACIST tubing and transducer [email or web address] 09:55 AM Hair removed from procedure site in procedure lab using clippers. Bilateral groin prepped with Chloraprep by Ciara Duke RN, then patient was draped. Skin intact. [email or web address] 09:55 AM Time: 09:55 Oxygen on at 2 L/min per nasal cannula by Ciara Duke RN [place] [id number] 09:55 AM Vitals capture started with the following parameters, Patient=Adult, Interval=5 min, Initial Rszxvhhr=428 mmHg, Deflation Rate=5 mmHg, Cuff placed on Left Arm 09:55 AM Recorded ECG: HR=63 Condition=Condition 1 09:56 AM Keegan Delacruz RT (R) Position: Scrub Time in: 09:55 [email or web address] 09:56 AM HR=60 bpm, MXBK=486/72 mmhg, SpO2=98.0 %, Resp=15 B/min, Comment=nsr 09:56 AM Ciara Duke RN Position: Director Of Rehabilitation Time in: 09:56 [email or web address] 09:56 AM Armando Manning RN Position: Monitor Time in: 09:56 [email or web address] 09:57 AM Time: 09:57 Versed 1 mg Intravenous Given by Ciara Duke RN [email or web address] 09:58 AM Pressure channel 1 zeroed. 09:59 AM Time: 09:59 Patient comfortable and pain free: Yes [email or web address] 09:59 AM Time: 09:59LOC: 5 = Fully awake and oriented or at pre-proc level [email or web address] 10:01 AM HR=59 bpm, NHBI=232/77 mmhg, SpO2=98.0 %, Resp=11 B/min, Comment=nsr 10:04 AM Clinical Presentation: Non-STEMI [email or web address] 10:04 AM Time out performed according to hospital policy [email or web address] 10:06 AM HR=59 bpm, KAAP=361/79 mmhg, SpO2=99.0 %, Resp=20 B/min, Comment=sb 10:06 AM Time: 10: 10 ml Lidocaine 2% to right groin Subcutaneous Given by Jasmin Robbins MD [email or web address] 10:08 AM Time: :08 10 ml Lidocaine 2% to right groin Subcutaneous Given by Jasmin Robbins MD [email or web address] 10:09 AM Micro-Introducer Kit utilized for sheath placement [email or web address] 10:10 AM Bolus angiogram of right Femoral complete: 5 ml/sec for a total of 5 mls [email or web address] 10:10 AM Access obtained by percutaneous puncture. 6Fr 10cm Terum[employer] [place] sheath placed in right Femoral artery. [id number] [email or web address] 10:11 AM HR=64 bpm, KNLT=708/72 mmhg, SpO2=98.0 %, Resp=9 B/min, Comment=nsr 10:11 AM 5Fr FL 4 catheter inserted over the wire DN [email or web address] 10:12 AM Recorded Pressure: Ao, HR=61, Condition=Condition 1 (Aorta) Ao 126/73/94 10:12 AM LCA angiography performed in multiple views. [email or web address] 10:13 AM Lesion found in 1st Marginal. Pre Stenosis: 100 Pre ELSIE Flow: [email or web address] 10:13 AM Lesion found in Mid LAD. Pre Stenosis: 99 Pre ELSIE Flow: [email or web address] 10:14 AM Mid/Distal Left Anterior Descending Coronary Artery and diagonal branches with 99% stenosis. If graft is supplying this area, 0 % stenosis [email or web address] 10:14 AM Circumflex, Obtuse Marginal, Left Posterior Descending, and Left Posterolateral Coronary Arteries with 100 % stenosis. If graft is supplying this area, 0 % stenosis [email or web address] 10:14 AM Catheter removed [email or web address] 10:14 AM Time: 09:59 Patient comfortable and pain free: [email or web address] 10:14 AM Time: 09:59LOC: 4 = Oriented but drowsy [email or web address] 10:15 AM 5Fr FR 4 catheter inserted over the wire [facility] [email or web address] 10:16 AM Recorded Pressure: Ao, HR=61, Condition=Condition 1 (Aorta) Ao 133/70/95 10:16 AM RCA angiography performed in multiple views. [email or web address] 10:16 AM HR=60 bpm, ENLF=088/71 mmhg, SpO2=99.0 %, Resp=21 B/min, Comment=nsr 10:17 AM Catheter removed [email or web address] 10:18 AM Lesion found in Mid RCA. Pre Stenosis: 100 Pre ELSIE Flow: [email or web address] 10:18 AM Right Coronary, Right Posterior Descending Arteries with Right Posterolateral and Acute Marginal branches with 100% stenosis. If graft is supplying this area, 0 % stenosis [email or web address] 10:18 AM Recorded Pressure: LV, HR=61, Condition=Condition 1 (Left Ventricle) LV 113/13/13 10:19 AM Recorded Pressure: LV, Ao, HR=64, Condition=Condition 1 (Left Ventricle) LV 123/12/15, (Aorta) Ao 122/72/95 10:19 AM 5Fr Pigtail catheter inserted over the wire [facility] [email or web address] 10:19 AM Catheter selectively placed in left ventricle [email or web address] 10:19 AM Catheter removed [email or web address] 10:20 AM 6Fr XB LAD 3.5 Cordis guide catheter was used to cannulate the PCI vessel successfully. reused? No [email or web address] 10:20 AM .014 BMW [place] 190cm guide wire across target lesion- successful. reused? No [email or web address] 10:20 AM Inflation device was opened. [email or web address] 10:21 AM HR=60 bpm, AUXH=993/77 mmhg, SpO2=99.0 %, Resp=18 B/min, Comment=nsr 10:22 AM At 10:22 the ACT was 162 seconds. [email or web address] 10:22 AM Recorded Pressure: Ao, HR=60, Condition=Condition 1 (Aorta) Ao 142/77/102 10:23 AM Guide catheter removed intact. [email or web address] 10:24 AM 6Fr XB4.0 Cordis guide catheter was used to cannulate the PCI vessel successfully. reused? No [email or web address] 10:25 AM Time: 10:24 Aggrastat Bolus: 42 ml Intravenous Given by Ciara Duke RN Hunter pump [email or web address] 10:25 AM Time: 10:25 Aggrastat 5mg/100ml 15 ml/hr Intravenous Given by Ciara Duke RN [employer] pump [email or web address] 10:26 AM Time: 10:25 Heparin 3500 units Intravenous Given by Ciara Duke RN [email or web address] 10:26 AM Recorded Pressure: Ao, HR=60, Condition=Condition 1 (Aorta) Ao 134/70/95 10:26 AM HR=59 bpm, BIRT=676/77 mmhg, PlV3=643.0 %, Resp=22 B/min, Comment=sb 10:28 AM 2.0 mm x 12 mm Emerge Monorail balloon across target lesion- successful. reused? No [email or web address] 10:28 AM Recorded Pressure: Ao, HR=64, Condition=Condition 1 (Aorta) Ao 127/72/95 10:29 AM Time: 10:14LOC: 4 = Oriented but drowsy [email or web address] 10:29 AM Time: 10:14 Patient comfortable and pain free: Yes [email or web address] 10:30 AM Balloon inflated @ 6 donaldo for 5 seconds [email or web address] 10:31 AM HR=60 bpm, HBOL=786/75 mmhg, SpO2=99.0 %, Resp=17 B/min, Comment=nsr 10:31 AM Balloon catheter removed intact. [email or web address] 10:31 AM Recorded Pressure: Ao, HR=59, Condition=Condition 1 (Aorta) Ao 127/69/92 10:33 AM .014 [employer] Tubac 190cm guide wire across target lesion- successful. reused? No [email or web address] 10:33 AM 2nd wire down 1st Diag [email or web address] 10:34 AM Recorded Pressure: Ao, HR=60, Condition=Condition 1 (Aorta) Ao 126/72/94 10:35 AM Reusing 2.0 x 12 Emerge Monorail in 1st Diag [email or web address] 10:36 AM HR=60 bpm, EANN=756/80 mmhg, ZhP8=010.0 %, Resp=8 B/min, Comment=nsr 10:36 AM Balloon inflated @ 8 donaldo for 8 seconds [email or web address] 10:36 AM Balloon inflated @ 9 donaldo for 30 seconds [email or web address] 10:36 AM Lesion found in 1st Diagonal. Pre Stenosis: 70 Pre ELSIE Flow: [email or web address] 10:37 AM Balloon inflated @ 10 donaldo for 12 seconds [email or web address] 10:37 AM Balloon catheter removed intact. [email or web address] 10:40 AM 3.0mm x 20mm Synergy drug-eluting stent across target lesion- successful Lot #[id number] [email or web address] 10:41 AM HR=58 bpm, JFAS=443/75 mmhg, SpO2=99.0 %, Resp=13 B/min, Comment=sb 10:42 AM Stent deployed @ 9 donaldo for 3 seconds [email or web address] 10:42 AM Stent balloon reinflated @ 16 donaldo for 9 seconds [email or web address] 10:43 AM Recorded Pressure: Ao, HR=59, Condition=Condition 1 (Aorta) Ao 140/78/104 10:43 AM Stent delivery system removed intact. [email or web address] 10:44 AM 3.5mm x 24mm Synergy drug-eluting stent across target lesion- successful Lot #[id number] [email or web address] 10:44 AM Time: 10:29 Patient comfortable and pain free: Yes [email or web address] 10:44 AM Time: 10:29LOC: 4 = Oriented but drowsy [email or web address] 10:46 AM At 10:45 the ACT was 400+ seconds. [email or web address] 10:46 AM HR=60 bpm, VTQD=950/79 mmhg, GsW0=196.0 %, Resp=14 B/min, Comment=nsr 10:47 AM Stent deployed @ 7 donaldo for 7 seconds [email or web address] 10:47 AM Stent balloon reinflated @ 11 donaldo for 8 seconds [email or web address] 10:48 AM Stent balloon reinflated @ 16 donaldo for 9 seconds [email or web address] 10:48 AM Time: 10:48 Versed 0.5 mg Intravenous Given by Ciara Duke RN [email or web address] 10:48 AM Recorded Pressure: Ao, HR=60, Condition=Condition 1 (Aorta) Ao 118/71/92 10:49 AM Guide wire (2nd wire) removed intact from 1st diag. [email or web address] 10:50 AM Stent balloon reinflated @ 14 donaldo for 7 seconds [email or web address] 10:50 AM Stent delivery system removed intact. [email or web address] 10:51 AM HR=62 bpm, KJGW=834/81 mmhg, DoK6=721.0 %, Resp=7 B/min, Comment=nsr 10:52 AM 2.0 mm x 12 mm Emerge Monorail balloon across target lesion- successful. reused? No [email or web address] 10:56 AM Recorded Pressure: Ao, HR=63, Condition=Condition 1 (Aorta) Ao 129/82/103 10:56 AM HR=63 bpm, LCHE=322/78 mmhg, ZlV5=565.0 %, Resp=11 B/min, Comment=nsr 10:59 AM Balloon inflated @ 12 donaldo for 29 seconds [email or web address] 10:59 AM Balloon inflated @ 9 donaldo for 5 seconds [email or web address] 10:59 AM Balloon inflated @ 10 donaldo for 6 seconds [email or web address] 11:00 AM Time: 10:44LOC: 4 = Oriented but drowsy [email or web address] 11:00 AM Time: 10:44 Patient comfortable and pain free: Yes [email or web address] 11:01 AM HR=63 bpm, WWLJ=847/79 mmhg, JgF8=167.0 %, Resp=10 B/min, Comment=nsr 11:01 AM Balloon inflated @ 10 donaldo for 8 seconds [email or web address] 11:02 AM Balloon inflated @ 10 donaldo for 4 seconds [email or web address] 11:02 AM Balloon inflated @ 10 donaldo for 5 seconds [email or web address] 11:03 AM Balloon inflated @ 10 donaldo for 4 seconds [email or web address] 11:03 AM Balloon catheter removed intact. [email or web address] 11:03 AM Guide wire removed intact. [email or web address] 11:04 AM 6Fr JR 4 Cordis guide catheter was used to cannulate the PCI vessel successfully. reused? No [email or web address] 11:06 AM HR=62 bpm, KRIU=023/85 mmhg, OsN4=946.0 %, Resp=7 B/min, Comment=nsr 11:06 AM .014 [employer] [place] 190cm guide wire across target lesion- successful. reused? No [email or web address] 11:06 AM Recorded Pressure: Ao, HR=65, Condition=Condition 1 (Aorta) Ao 150/78/107 11:10 AM .014 [place] 190cm guide wire across target lesion- successful. reused? No [email or web address] 11:11 AM HR=63 bpm, MFFR=948/87 mmhg, WeB7=657.0 %, Resp=4 B/min, Comment=nsr 11:12 AM Recorded Pressure: Ao, HR=64, Condition=Condition 1 (Aorta) Ao 131/77/100 11:12 AM Unsuccessful crossing wire. [email or web address] 11:13 AM Guide wire removed intact. [email or web address] 11:13 AM Guide wire removed intact. [email or web address] 11:13 AM Guide catheter removed intact. [email or web address] 11:15 AM Time: 11:00 Patient comfortable and pain free: Yes [email or web address] 11:15 AM Time: 11:00LOC: 4 = Oriented but drowsy [email or web address] 11:16 AM HR=61 bpm, PKFB=102/81 mmhg, QyE9=839.0 %, Resp=18 B/min, Comment=nsr 11:17 AM Time: 11:16 10 ml Lidocaine 2% to right groin Subcutaneous Given by Jasmin Robbins MD [email or web address] 11:17 AM Procedure completed at 11:17 [email or web address] 11:18 AM Sign out completed: Radiation Dose 2670 mGy Fluoro Time: 24.1 Isovue 370 - 200ml contrast 255 ml given by Jasmin Robbins MD. Complications: NoneCardiac Rehab Consult needed: YesConfirmed administered medications: Yes [email or web address] 11:19 AM Isovue 370 - 200ml,1 Bottle(s) used. [email or web address] 11:19 AM Arterial sheath pulled, Angio-seal closure device used and was Successful [id number] S/N. [email or web address] 11:19 AM Post ECG NSR [email or web address] 11:19 AM Post Blood Pressure 125/81 [email or web address] 11:20 AM Information taught Cardiac Cath, PCI, and Angioseal [email or web address] 11:21 AM Education needs Procedure, Plan of Care, and Responsibilities of Patient in Care [email or web address] 11:21 AM Learning barriers :None [email or web address] 11:21 AM Education Methods Verbal [email or web address] 11:21 AM Time: 11:21 Brilinta 180 mg Orally Given by Ciara Duke RN [email or web address] 11:25 AM Education evaluation Able to repeat information [email or web address] 11:25 AM Site status No bleeding/hematoma - Rt Groin as reported by Keegan Delacruz RT (R) at 11:25 [email or web address] 11:25 AM Opsite applied [email or web address] 11:25 AM Plavix, Effient or Brilinta given Yes [email or web address] 11:25 AM Delay to floor No [email or web address] 11:25 AM Family placed in consult room. [email or web address] 11:25 AM Complications: None [email or web address] 11:25 AM Fluoro Time: 24.1 [email or web address] 11:25 AM Isovue 370 - 200ml contrast 255 ml given by Jasmin Robbins MD. [email or web address] 11:25 AM Radiation Dose 2670 mGy [email or web address] 11:27 AM Lesion found in Proximal LAD. Pre Stenosis: 50 Pre ELSIE Flow: [email or web address] 11:27 AM Lesion found in LMCA. Pre Stenosis: 20 Pre ELSIE Flow: [email or web address] 11:27 AM Left Main Coronary Artery with 20% stenosis [email or web address] 11:27 AM Proximal Left Anterior Descending Coronary Artery with 50% stenosis. If graft is supplying this territory, 0 % stenosis. [email or web address] 11:28 AM 11:28 Post Pulses Bilateral DP & PT 2+ [email or web address] 11:30 AM Time: 11:15LOC: 4 = Oriented but drowsy [email or web address] 11:30 AM Time: 11:15 Patient comfortable and pain free: Yes [email or web address] 11:35 AM Patient out of room: 11:35 [email or web address] 11:36 AM Coronary Dominance: right [email or web address] Complications Complication None None Hemodynamics Pressures Site Systolic/A Wave Diastolic/V Wave Mean AO 126 73 94 AO 133 70 95 LV 113 13 13 LV 123 12 15 AO 122 72 95 AO 142 77 102 AO 134 70 95 AO 127 72 95 AO 127 69 92 AO 126 72 94 AO 140 78 104 AO 118 71 92 AO 129 82 103 AO 150 78 107 AO 131 77 100 Post Procedure Information Blood Pressure: 125/81 mmHg Rhythm: NSR Post procedural instructions were given Closure Device Time Device Success/Fail 06/16/2017 11:28:00 AM Angio-Seal VIP Successful Site Checks Time Location Status Staff Sheath In? Note 11:25 AM Rt Groin No bleeding/hematoma Keegan Delacruz RT (R) Pulses Time Site Pre-Procedure Post-Procedure Note 06/16/2017 8:54:00 AM Bilateral DP & PT 2+ 06/16/2017 8:54:00 AM Bilateral radial 2+ 11:28:00 AM Bilateral DP & PT 2+ Updated by Maty Pittman RN on 06/16/2017 11:41:33 AM electronically signed on 06/16/2017 11:42:56 AM with status of Final
[2017-06-16] MEDS: *HR* Heparin 5,000 UNIT/ML VIAL SQ SCH ×2 (14:57→20:29)
[2017-06-16] MEDS ORDERED: Ondansetron ODT 4 MG TAB.RAPDIS SL PRN (16:15)
[2017-06-16] MEDS: Gabapentin 300 MG CAPSULE PO SCH (17:56)
[2017-06-17] MEDS: *HR* Heparin 5,000 UNIT/ML VIAL SQ SCH (06:13)
[2017-06-17] MEDS: diazePAM 5 MG TABLET PO SCH (07:29)
[2017-06-17] MEDS: Isosorbide MONOnitrate (24 HR) 30 MG TAB.ER.24H PO SCH ×2 (07:29→07:36)
[2017-06-17] MEDS: Aspirin Enteric Coated 81 MG Tablet PO SCH (07:29)
[2017-06-17 07:33] VITALS: BP 107/77
--- NOTE | 2017-06-17 08:47 | Discharge Summary ---
<Eagle Delaney - Last Filed: 06/17/17 13:25> Date of Encounter: 06/17/17 Time of Encounter: 08:44 - Discharge Diagnosis (1) NSTEMI (non-ST elevated myocardial infarction) Priority: Primary Status: Acute Comments: One-day status post LHC with OK; discharged on ACEi, BB, Imdur, and statin (2) CAD (coronary artery disease) Priority: Secondary Status: Chronic Comments: stable; plan as above Qualifiers: Coronary Disease-Associated Artery/Lesion type: [place] artery [place] vs. transplanted heart: [place] heart Associated angina: without angina Qualified Code(s): I25.10 - Atherosclerotic heart disease of [place] coronary artery without angina pectoris (3) 3-vessel coronary artery disease Priority: Secondary Status: Chronic Comments: s/p LHC; plan as above (4) HTN (hypertension) Priority: Secondary Status: Chronic Comments: D/C on home meds Qualifiers: Hypertension type: essential hypertension Qualified Code(s): I10 - Essential (primary) hypertension (5) Anxiety Priority: Secondary Status: Chronic Comments: d/c on home meds - Discharge Medications Prescriptions: Lovastatin 40 mg PO DAILY 30 Days #30 tablet Home Medications: Aspirin Enteric Coated [Aspirin EC] 81 mg PO DAILY #30 tablet. 07/12/16 [Rx] Cholecalciferol (Vitamin D3) [Vitamin D3] 10,000 unit PO MO 12/01/16 [History] Clopidogrel [Plavix] 75 mg PO DAILY 12/01/16 [History] Lisinopril [Zestril] 10 mg PO DAILY 12/01/16 [History] Metoprolol [Lopressor] 25 mg PO BID 12/01/16 [History] Nitroglycerin [Nitrostat] 0.4 mg SL Q5M PRN 12/01/16 [History] diazePAM [Valium] 5 mg PO TID 12/01/16 [History] Gabapentin [Neurontin] 300 mg PO QPM 06/15/17 [History] Isosorbide MONOnitrate (24 HR) [Imdur] 30 mg PO DAILY 06/15/17 [History] Paroxetine HCl [Paxil] 40 mg PO DAILY 06/15/17 [History] Tamsulosin [Flomax] 0.4 mg PO DAILY 06/15/17 [History] Lovastatin 40 mg PO DAILY 30 Days #30 tablet 06/17/17 [Rx] Allergies/Adverse Reactions: 3 Allergy/AdvReac Type Severity Reaction Status Date / Time morphine Allergy Hives Verified 06/15/17 10:00 Procedures/tests Complete & Pending: Procedures Performed prior 72 hours Category Date Time Status CL Cardiac Catheterization [CL] Routine Health Support Specialist 06/16/17 08:41 Ordered ECG 12 lead ECG [ECG] Routine Y 06/16/17 16:42 Completed Date of admission: 06/15/17 13:39 Primary care physician: Gareth Ojeda MD Consults: 06/16/17 07:56 Consult to Cardiac Rehabilitation-Phase1 [CONS] Routine Comment: Reason for Consult: NSTEMI Call Completed: Yes 06/16/17 13:41 Consult to [facility] [CONS] Routine Reason for SW Consult: financial issues with affording medications Discharging clinician: Eagle Delaney Anticipated date of discharge: 06/17/17 - Patient Status Disposition: Home, Self-Care Condition: Good Functional capacity at discharge: independent ambulation Overall status at discharge: patient is back to baseline - Discharge Instructions Instructions: Lovastatin (By mouth), Myocardial Infarction (DC), Coronary Intravascular Stent Placement (DC) Follow Up With: [facility] [Provider Group] Gareth Ojeda MD [Primary Care Provider] - 06/28/17 1:00 pm Additional Instructions: Please take all medications as prescribed Follow-up with your six sigma black trainer within one week follow up with your primary care provider within 1-2 weeks please call your six sigma black trainer or primary care physician if you have any new symptoms in the meantime please report to the emergency department if you have any recurrence of chest pain, lightheadedness, shortness of air, or other symptoms as discussed you are encouraged to follow a low-sodium diet you may continue usual activities as tolerated - Diet and Activity Activity: resume usual activities as tolerated Diet: low salt diet Interval History: Uneventful ordinary course. Vital signs stable. Patients not having any chest pain since [facility]. No other symptoms including diaphoresis, lightheadedness, shortness of air, nausea, vomiting, or leg edema. Will discharge home and did not stable condition with close follow-up to cardiology as well as PCP. Hospital course: Mr. Moran is a 71 year old male admitted on 06/15/2017 via emergency department for new chest pain with elevated troponin. EKGs were non-ischemic. Cardiology consultation on case and recommended LHC for NSTEMI. LHC demonstrated 3 vessel disease and was treated in the laboratory supervisor with OK. Cardiology placed patient on dual antiplatelet therapy with aspirin and Plavix. Cardiology also recommends patient continue on moises inhibitor, beta myles, Imdur, and Mignon; Mignon therapy has been cost prohibitive to patient, so social work is attempting to find a solution for this prior to discharge. Ultimately, chest pain resolved and patient was without any other symptoms this a.m. (06/17/17). VS normal and stable. Patient discharged home in good condition with close follow-up to cardiology and with primary care provider. - Time Spent with Patient Total time spent providing and/or coordinating discharge services: Less than 30 minutes - Constitutional Vitals: Temp Pulse Resp BP Pulse Ox 98.2 F 62 20 107/77 100 06/17/17 07:32 06/17/17 07:32 06/17/17 07:32 06/17/17 07:32 06/17/17 07:32 General appearance: Present: cooperative, A&O X 3, no acute distress, answers questions appropriately - Head Head exam: Present: atraumatic, normocephalic - Eye Eye exam: Present: PERRL, conjuntiva pink, sclera anicteric. Absent: conjunctival injection - Neck Neck exam general surgery: Present: supple, trachea midline - Respiratory Respiratory exam: Present: CTAB. Absent: accessory muscle use, rales, respiratory distress, rhonchi, wheezes, tachypnea - Cardiovascular Cardiovascular exam: Present: RRR, +S1, +S2. Absent: bradycardia, diastolic murmur, gallop, rubs, +S3, +S4, systolic murmur, tachycardia - GI/Abdominal GI/Abdominal exam: Present: soft. Absent: tenderness - Extremities Exam Extremities exam: Present: warm, radial pulses palpable and symmetrical. Absent : pedal edema - Neurological Exam Neurological exam: Present: oriented X3, no focal deficits. Absent: facial droop, speech deficit - Skin Skin exam: Present: dry, intact, normal color. Absent: cyanosis, diaphoretic, mottled, pallor <Iglesia Winslow - Last Filed: 06/17/17 17:41> Date of Encounter: 06/17/17 Procedures/tests Complete & Pending: Procedures Performed prior 72 hours Category Date Time Status CL Cardiac Catheterization [CL] Routine Health Support Specialist 06/16/17 08:41 Ordered ECG 12 lead ECG [ECG] Routine Y 06/16/17 16:42 Completed Date of admission: 06/15/17 13:39 Primary care physician: Gareth Ojeda MD Consults: 06/16/17 07:56 Consult to Cardiac Rehabilitation-Phase1 [CONS] Routine Comment: Reason for Consult: NSTEMI Call Completed: Yes 06/16/17 13:41 Consult to [facility] [CONS] Routine Reason for SW Consult: financial issues with affording medications Hospital course: Mr. Moran is a 71 year old male - Time Spent with Patient Total time spent providing and/or coordinating discharge services: - Constitutional Vitals: Temp Pulse Resp BP Pulse Ox 98.2 F 62 20 107/77 100 06/17/17 07:32 06/17/17 07:32 06/17/17 07:32 06/17/17 07:32 06/17/17 07:32 - Attending Attestation I examined this patient and my medical decision-making was reviewed with the Resident Physician. I agree with the documented findings, disposition and treatment plan as described except to the extent set forth below. Mr. Moran is a 71 year old male with a PMH of CAD, HTN, anxiety/depression and CA with multiple stents. Presents to [facility] today with a 2 day h/o sharp left sided CP 7/10 with radiation to the left neck and arm. Pt was amditted in the hospital and placed him on heparin gtt and trended on troponin. He went to [facility] had OK to mid LAD and multi vessel PTCA. Currently pt is CP free. Cont DAPT , Statin and BB and Imdur. Need close f/u with card as an out pt. If he becomes symptomatic needed stage PCI of RCA. Medically stable to d/c home today
--- NOTE | 2017-06-17 08:48 | Event Note ---
Date of Encounter: 06/17/17 Time of Encounter: 08:45 - Cardiology Event Note Patient s/p [facility] yesterday: - Severe three vessel disease - PTCS/OK in the mid LAD, prox LAD 50% - PTCA of the DIAG1 and 1st marginal - RCA occluded but receives collaterals form LCA Denies any chest pain, SOB, palpitations, BARRETT, lightheadedness, n/v or LE edema. Patient ambulating to bathroom without concern. Continue ASA, plavix, imdur, lopressor, zestril and lipitor Cardiac Rehab ordered Outpatient followup made with [facility], [facility] Cardiology will sign off at this time. Please re-consult if there are any questions/concerns in the future. Thanks for involving us in Mr. Moran's care.
--- NOTE | 2017-06-19 11:30 | Electrocardiograph Report ---
[place] [id number] Test Date: 2017-06-16 Pat Name: José Miguel Moran Department: 110 Room: 2N14 Gender: M [employer] Dispatcher: MARTA : 1945 Requested By: Stew Barbour Order Number: [id number] Reading MD: Heena Bagley Measurements Intervals Vandiver Rate: 61 P: 39 AR: 195 QRS: 3 QRSD: 114 T: 125 QT: 471 QTc: 474 Interpretive Statements SINUS RHYTHM IVCD MODERATE T-WAVE ABNORMALITY, CONSIDER ANTEROLATERAL ISCHEMIA Electronically Signed On 06-19-2017 11:28:24 EDT by Heena Bagley
== END 2017-06-17 13:30 | disposition home or self-care (01) | DRG 247 ==
LOC: 2ANU 09:52 → EMEROO 09:52 → 2NENU 12:08 → 2NNU 13:00
PROVIDERS: ADMIT Family Medicine; ATTEND Internal Medicine

== ENCOUNTER 2018-02-09 09:40 | Inpatient (IN) ==
[~2018-02-09 09:40] MED LIST: Bacitracin 50,000 UNIT, Polymyxin B Sulfate 500,000 UNIT, Sodium Chloride IRRigation 1,... IR ONE
[2018-02-09] MEDS ORDERED: Lidocaine -MPF 2% 2 ML VIAL ONE (09:51)
[2018-02-09] MEDS ORDERED: Ondansetron 4 MG/2 ML VIAL ONE ×2 (09:51→16:24)
[2018-02-09] MEDS ORDERED: *HR* FentaNYL (PF) 100 MCG/2 ML VIAL ONE ×2 (09:51→16:27)
[2018-02-09] MEDS ORDERED: *HR* Propofol 200 MG/20 ML VIAL IVP ONE (09:51)
[2018-02-09] MEDS ORDERED: *HR* Succinylcholine 200 MG/10 ML VIAL IVP ONE (09:51)
[2018-02-09] MEDS ORDERED: Lidocaine -MPF 4% 5 ML AMPUL ONE (09:54)
[2018-02-09] MEDS ORDERED: Dexamethasone 4 MG/ML VIAL ONE (09:54)
[2018-02-09] MEDS: Ringers Solution, Lactated 1,000 ML IVC SCH ×3 (10:22→15:43)
[2018-02-09] MEDS ORDERED: Famotidine 20 MG/2 ML VIAL IVP ONE (10:23)
[2018-02-09] MEDS ORDERED: Pregabalin 75 MG CAPSULE PO ONE (10:24)
[2018-02-09] MEDS ORDERED: Acetaminophen IV 1,000 MG/100 ML INFUS..BTL IVPB ONE (10:24)
--- NOTE | 2018-02-09 10:29 | Anesthesia Evaluation PreOp ---
Date of Encounter: 02/09/18 Time of Encounter: 10:25 - Past History Planned Operation: C3-5 & C6-7 Cervical fusion & C4 Corpectomy Cardiac History: AL (NSTEMI 05/2017), HTN, Hyperlipidemia, Cardiac Stent ( Stents x 5 maintained - last 2DES on 05/2017. Maintained on ASA, Plavix. OK to hold DAPT per Dr. Martinez note in chart. Held x 7 days.) Pulmonary History: RADHA Dx (denies) VET ASSISTANT History: Other (Anxiety/Depression, Fibromyalgia, Chronic Mood disorder) Anesthesia History: No Prior Anesthetic Complications, Past Anesthesia (R-hand skin graft 1969, R-shoulder repaiir, L-knee , R-eCTR, paz, Appy) Alcohol Use: none Drug use: none Medications and Allergies Aspirin Enteric Coated [Aspirin EC] 81 mg PO DAILY #30 tablet. 07/12/16 [Rx] Cholecalciferol (Vitamin D3) [Vitamin D3] 10,000 unit PO MO 12/01/16 [History] Clopidogrel [Plavix] 75 mg PO DAILY 12/01/16 [History] Lisinopril [Zestril] 10 mg PO DAILY 12/01/16 [History] Metoprolol [Lopressor] 25 mg PO BID 12/01/16 [History] Nitroglycerin [Nitrostat] 0.4 mg SL Q5M PRN 12/01/16 [History] diazePAM [Valium] 5 mg PO TID 12/01/16 [History] Gabapentin [Neurontin] 300 mg PO QPM 06/15/17 [History] Isosorbide MONOnitrate (24 HR) [Imdur] 30 mg PO DAILY 06/15/17 [History] Paroxetine HCl [Paxil] 40 mg PO DAILY 06/15/17 [History] Tamsulosin [Flomax] 0.4 mg PO DAILY 06/15/17 [History] Lovastatin 40 mg PO DAILY 30 Days #30 tablet 06/17/17 [Rx] 3 Allergy/AdvReac Type Severity Reaction Status Date / Time morphine Allergy Hives Verified 06/15/17 10:00 - Meds/Allergy Pre-op Review Medications Reviewed: Yes Allergies Reviewed: Yes Beta Blockers on Current Med List: Yes (Metoprolol) Anesthesia Results - Labs Laboratory Tests 01/06/18 01/06/18 02/04/18 11:08 11:08 09:56 WBC 6.2 Hgb 13.9 Hct 41.3 Plt Count 162 PT INR APTT Sodium Potassium BUN Creatinine Est GFR (Non-Af Amer) Glucose 123 H Est Mean Plasma Glucose 123 Hemoglobin A1c 5.9 H 02/04/18 02/04/18 09:56 09:56 WBC Hgb Hct Plt Count PT 11.5 INR 1.1 APTT 36.5 H Sodium 139 Potassium 4.8 BUN 24 H Creatinine 0.96 Est GFR (Non-Af Amer) > 60 Glucose Est Mean Plasma Glucose Hemoglobin A1c - Imaging EKG: image reviewed (67bpm) Anesthesia Exam O2 Sat Height 1.8 m Height 1.8 m Height 1.8 m Weight 104.326 kg Weight 104.326 kg Weight 104.326 kg O2 Sat by Pulse Oximetry 97 O2 Sat by Pulse Oximetry 97 Vital Signs Temp Pulse Resp BP Pulse Ox 98.8 F 70 18 158/82 97 02/09/18 10:05 02/09/18 10:05 02/09/18 10:05 02/09/18 10:05 02/09/18 10:05 Height: 5'11" Weight: 230# BMI = 32 NPO (# of Hours): MNOc - HEENT Pupil (Motor): Pupils equal, EOMI Mallampati: III (GLIDESCOPE strongly suggested!) Teeth: Edentulous Oral Opening: Greater than 3 - VET ASSISTANT LOC: Oriented VET ASSISTANT Motor: Normal RLE, Normal LLE, Normal Face, Deficit RUE (BUE N&T, weakness) , Deficit LUE VET ASSISTANT Sensory: Normal: RLE, LLE, Face, Deficit: RUE, LUE - Cardiac Rhythm: Regular Murmur: None - Pulmonary Breath Sounds: bilateral Clear Respiratory Effort: Symmetrical Anesthesia Assess/Plan ASA Score: 3 (CAD, RADHA, NSTEMI 05/2017 w/ OK x 2, Mood disorder, Fibromyalgia) Modified [place] Scale for Level of Consciousness: Cooperative, oriented, and tranquil Anesthetic Plan: General Monitoring Plan: Standard Monitors Anes Supervising Prov Stmt: O2 Sat Height 1.8 m Height 1.8 m Height 1.8 m Weight 104.326 kg Weight 104.326 kg Weight 104.326 kg O2 Sat by Pulse Oximetry 97 O2 Sat by Pulse Oximetry 97 Vital Signs Temp Pulse Resp BP Pulse Ox 98.8 F 70 18 158/82 97 02/09/18 10:05 02/09/18 10:05 02/09/18 10:05 02/09/18 10:05 02/09/18 10:05
[2018-02-09] MEDS ORDERED: *HR* FentaNYL PATCH 50 MCG PATCH TD SCH (10:45)
[2018-02-09] MEDS ORDERED: *HR* Remifentanil 1 MG VIAL IVP ONE ×2 (10:50→15:04)
--- NOTE | 2018-02-09 11:28 | History & Physical Report ---
Date of Encounter: 02/09/18 Time of Encounter: 11:27 24 Hour HP Update - Instructions Instructions: If the History and Physical is less than 30 days old and was completed prior to A.M. admission and or procedure and has NOT been updated on calendar day of procedure please complete this update prior to performing procedure. - Update Patient reports changes in Medical Condition: No Changes in examination, assessment, or condition: No Changes in Medication: No Preop tests/diagnostics Reviewed: Yes Pre-Op MRSA Screen: Negative Surgery Remains Indicated: Yes Consent for Planned Operative Procedure(s) Verified: Yes - Pre-Operative Checklist Preoperative Checklist Indicated: No Prophylactic Antibiotic Ordered: Yes Home Medications Include Beta Dudley: No Beta Dudley Taken Today (Day of Surgery): No Beta Dudley Taken Yesterday (Day Prior to Surgery): No Is VTE Prophylaxis Indicated?: Yes
[2018-02-09] MEDS ORDERED: Propofol 500 MG/50 ML INFUS..BTL ONE (11:35)
[2018-02-09] MEDS ORDERED: *HR* PHENYLEPHRINE 1,000 MCG/10 ML SYRINGE IVP ONE (11:46)
[2018-02-09] MEDS ORDERED: *HR* Magnesium Sulfate 1 GM/2 ML VIAL ONE (11:48)
[2018-02-09] MEDS: CeFAZolin Syr 2,000MG/20 ML 2,000 MG/20 ML SYRINGE IVPB ONE ×2 (12:15→15:31)
[2018-02-09] MEDS ORDERED: EPHEDrine 50 MG/ML VIAL ONE (12:24)
[2018-02-09] MEDS ORDERED: *HR* Labetalol 20 MG/4 ML SYRINGE IVP PRN (13:04)
[2018-02-09] MEDS ORDERED: *HR* HYDROmorphone (PF) 1 MG/ML SYRINGE IVP PRN (13:04)
[2018-02-09] MEDS ORDERED: *HR* Promethazine 25 MG/ML VIAL IVP PRN (13:04)
[2018-02-09 15:39] LABS: Eosinophils % 0.2 %; Hematocrit 30.3 % (37.5-50.1); Immature Granulocytes % 0.5 % (0-4); Lymphocytes # 0.6 K/mcL (0.6-4.6); Lymphocytes % 13.2 %; Mean Corpuscular HGB Conc 36.3 g/dL (31.6-35.5); Mean Corpuscular Hemoglobin 32.3 pg (28.0-33.3); Mean Corpuscular Volume 88.9 fL (83.0-100.0); Mean Platelet Volume 9.7 fL (9.4-12.4); Monocytes # 0.1 K/mcL (0.0-1.3); Monocytes % 1.4 %; Neutrophils # 3.7 K/mcL (1.6-8.9); Platelet Count 143 K/mcL (140-400); Red Blood Count 3.41 M/mcL (4.19-5.50); Red Cell Distribution Width 12.2 % (11.5-14.5); Segmented Neutrophils % 84.7 %
[2018-02-09] MEDS ORDERED: Ketorolac 30 MG/ML VIAL ONE (16:24)
--- NOTE | 2018-02-09 16:35 | Orthopedic Operative Note ---
Date of procedure: 02/09/18 Pre-op diagnosis: Cervical stenosis, cervical myelopathy Post-op diagnosis: same Operation/Findings: Corpectomy C4, anterior cervical fusion C3-C5, and C6-7:The patient was brought to the operating room and placed supine on the operating room table. Successful general endotracheal anesthesia intubation was performed. Neurophysiologic monitoring personnel placed leads on the upper and lower extremities as well as the cranium for EMG monitoring purposes. Appropriate baseline potentials were noted by the neurophysiologic monitoring staff. Webster catheter was placed prior to positioning. Compression boots and deep vein thrombosis prophylaxis were also placed all bony prominences including the ulnar nerve near the medial epicondyles of the elbows were appropriately padded. Mild traction was placed on the bilateral shoulders and taped into place. Preoperative antibiotics were administered. The area from the mandible bilaterally to the upper thoraces was prepped and draped in the usual sterile fashion. An oblique incision was made at the level of the cricoid cartilage which is approximately 4 cm in length and extended from the midline of the cervical spine laterally towards the sternocleidomastoid muscle on the left. It was 1 cm medial and parallel to the sternocleidomastoid muscle on the left. We then performed standard medial approach to the carotid sheath. Sponges were used to tease the fascial medial to the sternocleidomastoid muscle while carefully controlling and palpating the carotid artery. Using careful dissection we were able to get to the level of the anterior vertebral bodies and longus coli muscles. The spinal needle was placed at the appropriate C6-7 level, and intraoperative radiograph was obtained which was a cervical spine lateral radiograph. The needle and radiograph confirmed we were at the correct C6-7 operative level. We further exposed this level by using Bovie cautery under the medial edge of the longus colli muscles to allow them to be retracted approximately 2 mm laterally on each side. An 11 blade was used to perform anterior discectomy at the appropriate C6-7 level after an initial annulotomy of the anterior longitudinal ligament and annulus was performed. Further disc material was removed with pituitary Rongeurs. Subsequently, Synthes pins were placed at the C6 and C7 vertebral bodies respectively to provide distraction. We then used a Trimline cervical retractor which was placed in both medial and lateral as well as inferior superior direction to allow full visualization of the appropriate C6-7 disc and C6 and C7 vertebral bodies. The Leica microscope was brought to the field and the remainder of the procedure was performed under the guidance of this microscope. Using pituitary rongeurs and small curettes, various micro-instruments, a full discectomy was performed at the appropriate C6-C7 level. The posterior longitudinal ligament was encountered and appeared partially calcified. A portion of this ligament was removed. After complete and thorough discectomy and removal of spondylitic material was performed the endplates of the C6 and C7 vertebral bodies were prepared with a bur until allow bleeding of cancellous bone. A 7mm trial graft was evaluated and appeared to fit quite well within the excised C6-7 disc space. A cortico-cancellous allograft of 7 mm was utilized, carefully tapped into place within the excised disc space with the aid of a bone tamp. It was seated approximately 2 mm from the anterior edge of the cortex of the adjacent vertebral bodies. We then turned our attention to the C4-5 level where a similar series of procedures was performed including discectomy, removal of spondylitic material, end plate preparation, and trial grafting. We decompressed all the way to the posterior longitudinal ligament including partial removal of this ligament which was partially calcified calcified. We then went to the C3-4 level and again performed a discectomy, removal of spondylitic material, decompression including removal of part of the posterior longitudinal ligament. At this time we have the C3-4 and C4-5 levels fully decompressed. This left intervening C4 vertebral body bone. We removed this bone with rongeurs and curettes and Kerrison instruments. Autograft bone was saved from this portion of the procedure for later use and supplemented with allograft. After the decompression which included removal of part of the posterior longitudinal ligament, the area inferior to the C3 for vertebral body all the way to the superior aspect of the C5 vertebral body was fully decompressed allowing visualization of the spinal cord. We then selected the appropriate size expandable interbody cage after using calipers to measure the space between C3 and C5. This interbody cage ( [email or web address]) was packed with autograft and allograft bone and carefully placed under direct visualization with the aid of fluoroscopy. When found to be in appropriate position the home care manager was removed. Areas outside of the cage between the C3 and C5 vertebral bodies were packed with autograft bone. A cervical plate was then placed on the anterior aspect of the C3 and C5 vertebral bodies. The plate was placed in the midline position after drilling four 13 mm self tapping screws and inserting them. They were locked in place using standard Venture plate maneuvers. At this point a lateral radiograph of the cervical spine was obtained and showed satisfactory position of the interbody cage, graft and plate. The wound was copiously irrigated and bleeders encountered were cauterized using Bovie cautery. Platysma was closed with interrupted 2-0 Vicryl sutures. Running 3-0 Monocryl suture was used for skin closure. Sterile dressing was placed over the neck wound. A cervical collar was placed. The patient was transferred to a hospital bed and extubated. The patient was noted to be fully motor and sensory intact in the recovery room at the end of the procedure. The medications. All sponge instrument and needle counts were correct at the end of the procedure. Anesthesia: GETA Surgeon: Clarke Soriano Jr Was there an licensed physical therapist assistant present: No Estimated blood loss (cc): 200 Specimen: None Condition: stable Disposition: PACU
[2018-02-09] MEDS ORDERED: Naloxone 0.4 MG/ML INJ IVP PRN (17:40)
[2018-02-09] MEDS ORDERED: *HR* HYDROcodone/Acet 5/325 mg TABLET PO PRN (17:40)
[2018-02-09] MEDS ORDERED: Acetaminophen 325 MG TABLET PO PRN (17:40)
[2018-02-09] MEDS ORDERED: *HR* OxyCODONE Immed Rel 5 MG TABLET PO PRN (17:40)
[2018-02-09] MEDS ORDERED: Ondansetron 4 MG/2 ML VIAL IVP PRN (17:40)
--- NOTE | 2018-02-09 17:40 | Anesthesia Evaluation Post Op ---
Date of Encounter: 02/09/18 Time of Encounter: 17:39 - Vital Signs Vital Signs: Last Vital Signs Temp 98.5 F 02/09/18 17:30 Pulse 81 02/09/18 17:30 Resp 16 02/09/18 17:30 BP 139/75 02/09/18 17:30 Pulse Ox 99 02/09/18 17:30 - Lungs Lungs: Clear Ascult./Percussion - Airway Airway: Non-obstructed - Cardiovascular Regular Rate - Mental Status Mental Status: Alert & Oriented, Answers Appropriately - Pain Pain Scale: 3 - Nausea Vomiting Nausea Vomiting: Not Present - Hydration Hydration: Ice chips, Webster catheter - Discharge PostOp Status: Transfer Patient to floor
[2018-02-10] MEDS: Ringers Solution, Lactated 1,000 ML IVC SCH ×2 (00:07→22:47)
[2018-02-10 08:45] LABS: Hematocrit 29.6 % (37.5-50.1); Hemoglobin 10.6 g/dL (12.9-16.9); Immature Granulocytes % 0.7 % (0-4); Lymphocytes # 0.8 K/mcL (0.6-4.6); Lymphocytes % 7.9 %; Mean Corpuscular HGB Conc 35.8 g/dL (31.6-35.5); Mean Corpuscular Hemoglobin 31.6 pg (28.0-33.3); Mean Corpuscular Volume 88.4 fL (83.0-100.0); Monocytes # 0.5 K/mcL (0.0-1.3); Monocytes % 4.9 %; Nucleated Red Blood Cells 0.2 /100 WBC (0); Platelet Count 179 K/mcL (140-400); Red Blood Count 3.35 M/mcL (4.19-5.50); Red Cell Distribution Width 12.4 % (11.5-14.5); Segmented Neutrophils % 86.5 %
[2018-02-10 08:46] LABS: Neutrophils # 8.8 K/mcL (1.6-8.9)
[2018-02-10 08:57] LABS: BUN/Creatinine Ratio 33 (6-26); Blood Urea Nitrogen 39 mg/dL (8-23); Calcium 8.5 mg/dL (8.6-10.3); Carbon Dioxide 21 mEq/L (23-29); Chloride 106 mEq/L (98-107); Glucose 191 mg/dL (70-105); Osmolality,Calculated 297 (280-300); Potassium 5.1 mEq/L (3.5-5.1); Sodium 136 mEq/L (136-145); eGFR For African Americans > 60 (> 60); eGFR For Non-African Americans 60 (> 60)
--- NOTE | 2018-02-10 09:17 | Orthopedics Progress Note ---
Date of Encounter: 02/10/18 Time of Encounter: 09:17 - Assessment and Plan (1) Cervical spinal stenosis Current Visit: Yes Status: Chronic (2) Cervical myelopathy Current Visit: Yes Status: Chronic (3) Status post cervical spinal fusion Current Visit: Yes Status: Acute Subjective Principal diagnosis: Cervical stenosis, cervical myelopathy Interval history: POD#1 Date of procedure: 02/09/18 Pre-op diagnosis: Cervical stenosis, cervical myelopathy Post-op diagnosis: same Operation/Findings: Corpectomy C4, anterior cervical fusion C3-C5, and C6-7 The patient states he is having improvement of his preoperative symptoms. He states his balance and coordination is improved compared to before surgery. He states his bilateral upper extremities have improved sensation since surgery. The patient complains of continuing Webster. He states he has had hematuria in the past and states he was admitted approximately one year ago with a kidney infection. Review of records I am not able to see where he was admitted for a kidney infection. It looks like he was admitted for chest pain and falls however cannot find this in the records here you know patient states he was seen at [place]. He does state that he has seen a urologist but it has been many years ago. He does have a history of BPH and is continuing Flomax at this time. Examination of the Webster bag reveals a moderate amount of clotted blood.intermixed with urine. Afebrile vital signs are stable. Incision is clean dry and intact. Neurovascularly intact with regard to bilateral lower extremities. Fires all upper and lower extremity motor groups. Assessment: Stable postoperative. Hematuria with clots - continued Webster Plan: Reviewed postoperative restrictions and precautions. Patient verbalized understanding. Collar present and patient aware to apply with activity. Mobilize with therapy Continue analgesics as needed Discharge planning - awaiting therapy recommendations Radiographs pending Re: Hematuria, we will speak with patient's PCP Dr. Regan at patient's approval to discuss history of hematuria and whether patient has seen an [place] urologist in the past. If he has seen a particular physician will probably consult them to further evaluate this. He is on antiplatelet therapy with aspirin and Plavix which may be the cause of this however with the clots may need to get a second opinion prior to patient discharge as we have had to continue the Webster and he has had urethral bleeding since surgery. Objective Vital signs: Vital Signs Temp Pulse Resp BP Pulse Ox 02/10/18 07:10 97.8 F 73 17 100/62 97 02/10/18 06:52 98.5 F 74 16 126/78 98 02/10/18 04:16 98.8 F 69 16 121/73 98 02/09/18 22:51 98.7 F 73 16 117/70 95 02/09/18 19:00 98.5 F 75 16 124/72 98 02/09/18 18:25 98.1 F 77 15 132/73 98 02/09/18 17:56 98.2 F 82 15 122/70 98 02/09/18 17:30 98.5 F 81 16 139/75 99 02/09/18 17:20 84 14 141/76 99 02/09/18 17:10 98.5 F 84 15 148/74 98 02/09/18 17:00 87 14 143/73 98 02/09/18 16:50 88 16 141/78 99 02/09/18 16:40 98.7 F 89 16 124/70 98 02/09/18 10:17 98.8 F 70 18 158/82 97 02/09/18 10:05 98.8 F 70 18 158/82 97 Intake and Output 02/09/18 02/10/18 02/10/18 23:59 07:59 15:59 Intake Total 200 / 200 Output Total 300 / 300 550 / 550 Balance -300 / -300 -350 / -350 Intake: Oral 200 / 200 Output: Estimated Blood Loss 200 / 200 Urine Amount (Catheter) 100 / 100 Catheter 550 / 550 - Labs CBC & BMP: 02/10/18 08:29 02/10/18 08:29 Labs: Abnormal lab results RBC 3.35 M/mcL (4.19-5.50) L 02/10/18 08:29 Hgb 10.6 g/dL (12.9-16.9) L 02/10/18 08:29 Hct 29.6 % (37.5-50.1) L 02/10/18 08:29 MCHC 35.8 g/dL (31.6-35.5) H 02/10/18 08:29 Nucleated RBCs/100 WBC 0.2 /100 WBC (0) H 02/10/18 08:29 Carbon Dioxide 21 mEq/L (23-29) L 02/10/18 08:29 BUN 39 mg/dL (8-23) H 02/10/18 08:29 BUN/Creatinine Ratio 33 (6-26) H 02/10/18 08:29 Glucose 191 mg/dL (70-105) H 02/10/18 08:29 Calcium 8.5 mg/dL (8.6-10.3) L 02/10/18 08:29 - VTE Documentation of Mechanical Device: Graduated compression elastic hosiery Consult Discharge Plan - Plan Referrals: Gareth Ojeda MD [Primary Care Provider] - Prescriptions: OxyCODONE Immed Rel [Roxicodone 5 MG] 5 mg PO Q6HR PRN 7 Days #28 tablet PRN Reason: Severe Pain
[2018-02-10] MEDS: Aspirin Enteric Coated 81 MG Tablet PO SCH (09:29)
[2018-02-10] MEDS: Fluconazole 100 MG TABLET PO SCH (09:30)
--- NOTE | 2018-02-10 14:50 | Urology - Consult Note ---
<Liliana Navarro N - Last Filed: 02/10/18 14:55> Date of Encounter: 02/10/18 Time of Encounter: 14:46 - Assessment and Plan (1) Gross hematuria Current Visit: Yes Status: Acute Assessment and plan: Hematuria likely from traumatic catheter placement. Catheter bag is clear at present. Patient does have prior history of hematuria. Will co-examine and reevaluate with Dr. Paulson. Urology CN:[facility] Consult date: 02/10/18 Reason for consult Urology: Gross Hematuria (Gross hematuria noted indwelling catheter) History of present illness: Patient is a 72-year-old male who is one day postoperative from an anterior cervical fusion with Dr. Soriano. It was noted that in the indwelling Webster catheter there appeared to be gross hematuria. Therefore urology was consulted. The patient denies any] known past medical history of renal prostate or bladder pathology. The patient denies any previous history of hematuria, the patient also denies being established with the urologist. However after reviewing the patient's past medical records, it was determined that the patient is an established patient of Dr. Smith. Dr. Smith has worked the patient up for hematuria in the past. Currently the patient states the indwelling Webster is very uncomfortable. The patient has been off all anticoagulants for the past 7 days Past Med Surg Social Fam HX - Past Medical History Medical history: cancer, coronary artery disease, fibromyalgia, hyperlipidemia, hypertension, myocardial infarction Additional medical history: dyslipidemia,RADHA,anxiety,fibrositis,chronic mood disorder,erectile dysfunction,osteoarthritis,DJD,hx of melanoma left upper arm, chronic depressive symptomology,artherosclerotic cardiovascular disease, learning disability,actinic keratosis,bleeding of penis,scrotal varicose veins, BPH,history of ASCVD,neoplasm of uncertain behavior of skin Psychiatric history: anxiety, depression, PTSD - Past Surgical History Surgical History: appendectomy, cholecystectomy, other Additional surgical history: skin graft rt hand,shoulder repair right,left knee, heart cath 2 stents,right carpal tunnel release,left carpal tunnel release, spinal tap,stent replacement, - Social History Smoking Status: Never smoker Smokeless Tobacco Status: No Alcohol use: none Drug use: none - Family History Brother Family Member Ethnicity: Non- Living Status: Still Living Hx Family Cardiac Disorders: Yes (NH) Hx Family Endocrine Disorder: Yes (DM) Mother Adopted: No Family Member Ethnicity: Non- Living Status: Hx Family Cardiac Disorders: Yes Hx Family Respiratory Disorders: No Hx Family Cancer: Yes Hx Family GI Disorders: No Hx Family Endocrine Disorder: No Hx Family Neuromuscular Disorders: No Hx Family Neurologic Disorders: No Hx Family HEENT Disorders: No Hx Family Autoimmune Disorders: No Medications and Allergies Aspirin [Adult Aspirin Regimen] 81 mg PO DAILY 02/09/18 [History] Cholecalciferol (Vitamin D3) [Vitamin D3] 10,000 unit PO MO 02/09/18 [History] Clopidogrel [Plavix] 75 mg PO DAILY 02/09/18 [History] Fluconazole [Diflucan] 100 mg PO DAILY 02/09/18 [History] Lisinopril [Zestril] 10 mg PO DAILY 02/09/18 [History] Tamsulosin [Flomax] 0.4 mg PO DAILY 02/09/18 [History] OxyCODONE Immed Rel [Roxicodone 5 MG] 5 mg PO Q6HR PRN 7 Days #28 tablet [Rx] 3 Allergy/AdvReac Type Severity Reaction Status Date / Time morphine Allergy See Verified 02/09/18 11:07 Comments Review of Systems - Constitutional as per HPI, no chills, no fatigue, no fever(s) - Cardiovascular no chest pain, no dyspnea - Respiratory no cough, no dyspnea - Gastrointestinal no abdominal pain, no change in bowel habits - Genitourinary genital pain, hematuria, urinary hesitancy, no change in urinary stream, no difficulty urinating, no dysuria, no flank pain, no scrotal swelling, no urinary frequency, no urinary incontinence, no urinary urgency - Integumentary no lesions, no rash, no swelling - Neurological no confusion, no syncope - Hematologic/Lymphatic easy bleeding, easy bruising, other (Patient takes Plavix and ASA daily ) Exam Initial Vital Signs Temp Pulse Resp BP Pulse Ox 98.8 F 70 18 158/82 97 02/09/18 10:05 02/09/18 10:05 02/09/18 10:05 02/09/18 10:05 02/09/18 10:05 - General physical appearance Present: well developed, no distress - Eyes Present: PERRL, normal ocular movement - ENT Present: normal nares, no hearing loss, no congestion. Absent: nasal discharge - Neck Present: no masses, trachea midline, other (anterior cervical incision clean, dry, intact ) - Respiratory Present: normal respiratory effort - Abdomen Abdomen: Present: soft, non tender - Genitourinary other (Webster catheter indwelling; urine clear in bag; tubing with clotted, wine- colored blood) - Integumentary Present: no rash, no abnormal pigmentation - Neurologic Present: normal coordination Urology Results - Labs 02/10/18 08:29 02/10/18 08:29 Abnormal lab results RBC 3.35 M/mcL (4.19-5.50) L 02/10/18 08:29 Hgb 10.6 g/dL (12.9-16.9) L 02/10/18 08:29 Hct 29.6 % (37.5-50.1) L 02/10/18 08:29 MCHC 35.8 g/dL (31.6-35.5) H 02/10/18 08:29 Nucleated RBCs/100 WBC 0.2 /100 WBC (0) H 02/10/18 08:29 Carbon Dioxide 21 mEq/L (23-29) L 02/10/18 08:29 BUN 39 mg/dL (8-23) H 02/10/18 08:29 BUN/Creatinine Ratio 33 (6-26) H 02/10/18 08:29 Glucose 191 mg/dL (70-105) H 02/10/18 08:29 Calcium 8.5 mg/dL (8.6-10.3) L 02/10/18 08:29 Diabetes panel 02/10/18 Range/Units 08:29 Sodium 136 (136-145) mEq/L Potassium 5.1 (3.5-5.1) mEq/L Chloride 106 (98-107) mEq/L Carbon Dioxide 21 L (23-29) mEq/L BUN 39 H (8-23) mg/dL Creatinine 1.20 (0.70-1.30) mg/dL Glucose 191 H (70-105) mg/dL Calcium 8.5 L (8.6-10.3) mg/dL Calcium panel 02/10/18 Range/Units 08:29 Calcium 8.5 L (8.6-10.3) mg/dL Pituitary panel 02/10/18 Range/Units 08:29 Sodium 136 (136-145) mEq/L Potassium 5.1 (3.5-5.1) mEq/L Chloride 106 (98-107) mEq/L Carbon Dioxide 21 L (23-29) mEq/L BUN 39 H (8-23) mg/dL Creatinine 1.20 (0.70-1.30) mg/dL Glucose 191 H (70-105) mg/dL Calcium 8.5 L (8.6-10.3) mg/dL Adrenal panel 02/10/18 Range/Units 08:29 Sodium 136 (136-145) mEq/L Potassium 5.1 (3.5-5.1) mEq/L Chloride 106 (98-107) mEq/L Carbon Dioxide 21 L (23-29) mEq/L BUN 39 H (8-23) mg/dL Creatinine 1.20 (0.70-1.30) mg/dL Glucose 191 H (70-105) mg/dL Calcium 8.5 L (8.6-10.3) mg/dL All other labs normal. Consult Discharge Plan - Plan Referrals: Gareth Ojeda MD [Primary Care Provider] - Prescriptions: OxyCODONE Immed Rel [Roxicodone 5 MG] 5 mg PO Q6HR PRN 7 Days #28 tablet PRN Reason: Severe Pain <Jeffry Paulson - Last Filed: 02/10/18 15:37> Date of Encounter: 02/10/18 - Assessment and Plan (1) Gross hematuria Current Visit: Yes Status: Acute Assessment and plan: I have seen and examined the patient with Liliana Navarro. I believe the patient' s hematuria was related to traumatic catheter placement for manipulation after surgery. His hematuria has resolved. I expect that his hematuria will not return. Okay to remove catheter per primary team. Patient should follow up with Dr. Smith as an outpatient in the next 1-2 months to document resolution of hematuria. Please call with any questions Exam Initial Vital Signs Temp Pulse Resp BP Pulse Ox 98.8 F 70 18 158/82 97 02/09/18 10:05 02/09/18 10:05 02/09/18 10:05 02/09/18 10:05 02/09/18 10:05 - Eyes Absent: icteric - Neck Present: no lymphadenopathy - Cardiovascular Cardiovascular exam IM: RRR (no jvd, no aortic distention on exam ) Urology Results - Labs 02/10/18 08:29 02/10/18 08:29 Abnormal lab results RBC 3.35 M/mcL (4.19-5.50) L 02/10/18 08:29 Hgb 10.6 g/dL (12.9-16.9) L 02/10/18 08:29 Hct 29.6 % (37.5-50.1) L 02/10/18 08: MCHC 35.8 g/dL (31.6-35.5) H 02/10/18 08:29 Nucleated RBCs/100 WBC 0.2 /100 WBC (0) H 02/10/18 08:29 Carbon Dioxide 21 mEq/L (23-29) L 02/10/18 08:29 BUN 39 mg/dL (8-23) H 02/10/18 08:29 BUN/Creatinine Ratio 33 (6-26) H 02/10/18 08:29 Glucose 191 mg/dL (70-105) H 02/10/18 08:29 Calcium 8.5 mg/dL (8.6-10.3) L 02/10/18 08:29 Diabetes panel 02/10/18 Range/Units 08:29 Sodium 136 (136-145) mEq/L Potassium 5.1 (3.5-5.1) mEq/L Chloride 106 (98-107) mEq/L Carbon Dioxide 21 L (23-29) mEq/L BUN 39 H (8-23) mg/dL Creatinine 1.20 (0.70-1.30) mg/dL Glucose 191 H (70-105) mg/dL Calcium 8.5 L (8.6-10.3) mg/dL Calcium panel 02/10/18 Range/Units 08:29 Calcium 8.5 L (8.6-10.3) mg/dL Pituitary panel 02/10/18 Range/Units 08:29 Sodium 136 (136-145) mEq/L Potassium 5.1 (3.5-5.1) mEq/L Chloride 106 (98-107) mEq/L Carbon Dioxide 21 L (23-29) mEq/L BUN 39 H (8-23) mg/dL Creatinine 1.20 (0.70-1.30) mg/dL Glucose 191 H (70-105) mg/dL Calcium 8.5 L (8.6-10.3) mg/dL Adrenal panel 02/10/18 Range/Units 08:29 Sodium 136 (136-145) mEq/L Potassium 5.1 (3.5-5.1) mEq/L Chloride 106 (98-107) mEq/L Carbon Dioxide 21 L (23-29) mEq/L BUN 39 H (8-23) mg/dL Creatinine 1.20 (0.70-1.30) mg/dL Glucose 191 H (70-105) mg/dL Calcium 8.5 L (8.6-10.3) mg/dL All other labs normal.
[2018-02-11 07:38] VITALS: BP 114/66
[2018-02-11] MEDS: Fluconazole 100 MG TABLET PO SCH (09:00)
[2018-02-11] MEDS: Aspirin Enteric Coated 81 MG Tablet PO SCH (09:01)
--- NOTE | 2018-02-11 17:14 | Discharge Summary ---
- NOTES TO OUTPATIENT PROVIDER Notes to Outpatient Provider: Hematuria after Webster placement. Patient seen by urology and will follow up outpatient with them as well. Orders not resulted at time of discharge: Pending orders 02/09/18 12:38 XR cervical spine 1V [XR] Routine Date of Encounter: 02/11/18 Time of Encounter: 08:10 - Discharge Diagnosis (1) Cervical spinal stenosis Priority: Primary Status: Chronic (2) Cervical myelopathy Priority: Primary Status: Chronic (3) Status post cervical spinal fusion Priority: Primary Status: Acute - Hospital Course Hospital course: Mr. Moran is a 72 year old male status post Date of procedure: 02/09/18 Pre-op diagnosis: Cervical stenosis, cervical myelopathy Post-op diagnosis: same Operation/Findings: Corpectomy C4, anterior cervical fusion C3-C5, and C6-7 The patient had an uneventful postoperative course. He was to noted to have hematuria after Webster placement - urology was consulted who she appreciated likely to a traumatic Webster placement. He will follow up as an outpatient with them to monitor. Progressed from intravenous analgesic needs to oral analgesic needs only. Remained neurovascularly intact and mobilized satisfactorily. All intraoperative and/or postoperative radiographic studies were satisfactory. Patient is also evaluated during his hospital stay by his surgeon. Patient is discharged with plan for rehabilitation and follow-up in 2 weeks post discharge on analgesic medication and patient's home medications. - Time Spent with Patient Total time spent providing and/or coordinating discharge services: - Discharge Medications Prescriptions: OxyCODONE Immed Rel [Roxicodone 5 MG] 5 mg PO Q6HR PRN 7 Days #28 tablet PRN Reason: Severe Pain Home Medications: Aspirin [Adult Aspirin Regimen] 81 mg PO DAILY 02/09/18 [History] Cholecalciferol (Vitamin D3) [Vitamin D3] 10,000 unit PO MO 02/09/18 [History] Clopidogrel [Plavix] 75 mg PO DAILY 02/09/18 [History] Fluconazole [Diflucan] 100 mg PO DAILY 02/09/18 [History] Lisinopril [Zestril] 10 mg PO DAILY 02/09/18 [History] Tamsulosin [Flomax] 0.4 mg PO DAILY 02/09/18 [History] OxyCODONE Immed Rel [Roxicodone 5 MG] 5 mg PO Q6HR PRN 7 Days #28 tablet [Rx] Allergies/Adverse Reactions: 3 Allergy/AdvReac Type Severity Reaction Status Date / Time morphine Allergy See Verified 02/09/18 11:07 Comments Date of admission: 02/09/18 17:40 Primary care physician: Gareth Ojeda MD Consults: 02/09/18 17:40 Consult to Occupational Therapy [CONS] Routine Comment: Evaluate, develop and implement POC Reason for Consult: Postoperative rehabilitation Does patient have active BEDREST order?: No Is patient medically & hemodynamically stable?: Yes Patient assessed for mobility or mobilized this visit?: No Consult to Physical Therapy [CONS] Routine Comment: Evaluate, develop and implement POC Reason for Consult: Postoperative rehabilitation Does patient have active BEDREST order?: No Is patient medically & hemodynamically stable?: Yes Patient assessed for mobility or mobilized this visit?: No Consult to Spine Navigator [CONS] [CONS] Routine 02/10/18 13:29 Consult to Urology [CONS] Routine Consulting Provider: Urology Heather Reason for Consult: hematuria with clots in urine and urethral bleeding - currently on Webster Time Notified: 13:30 Call Completed: Yes - VTE Documentation of Mechanical Device: Graduated compression elastic hosiery - Impressions ITS Impressions Fluoroscopy 02/09/18 12:38 IMPRESSION: Intraprocedural fluoroscopic spot images as above. See separate procedure report for more information. D/ / Vinicio Payne / Vinicio Payne Interpreting Provider: Vinicio Payne Cervical Spine X-Ray 02/10/18 08:04 IMPRESSION: Anterior cervical spinal fusion of C3 through C5 with C4 vertebral body pacer. Anterior C6-C7 fusion. Normal alignment without acute hardware failure. D/ / Justus Nieves MD / Justus Nieves MD Interpreting Provider: Justus Nieves MD - Patient Status Disposition: Home, Self-Care Condition: Good Functional capacity at discharge: uses cane/walker Overall status at discharge: patient is progressing back to baseline - Discharge Instructions Follow Up With: Lulu Garcia PAC [Physician Marine Insulator] - 02/22/18 11:15 am Clarke Soriano Jr, MD [Partnered Physician] - 05/12/18 4:00 pm Gagandeep Smith MD [Partnered Physician] - 03/10/18 11:15 am Additional Instructions: Remove fentanyl patch from left arm and dispose of it on Wednesday02/12/18. Discharge Instructions: Cervical Please call [facility] ([phone]), your Primary Care Physician, or report to the ER if you have any of the following symptoms: Fever greater that 101.5, increased pain/redness/drainage/odor for your incision site or any other concerning symptoms. ACTIVITY * May Shower * No Tub Baths * No Smoking * No Swimming * No Driving * Wear Collar when up walking MEDICATIONS: Upon discharge resume your home medications. Take all the medications as prescribed. Take a stool softener if taking narcotic pain medications. Stool softeners are only effective if you drink enough fluids. Drink 6-8 glass of water or fluids a day, unless this is not allowed for another health problem. Despite using stool softeners, if you haven't had a bowel movement in 3 days, please switch to a gentle laxative. Gentle laxatives are sold over the counter. You should have a bowel movement within 24 hours, if not call the office. You will be discharged from the hospital with a prescription for pain medication. You are encouraged to decrease the use of narcotic pain medication as tolerated. Should you require a refill, please call the office. It is best to call 48-72 hours in advance of needing a prescription refill so you don't run out of medication. WOUND CARE: Leave steri-strips in place until they fall off on their own. Pat dry when you get out of the shower. FOLLOW-UP: Please follow up with your surgeon in the orthopedic clinic in 2 weeks from the day of surgery. References: [employer] (www.apta.org) - Diet and Activity Activity: as per physical therapy Diet: advance to your usual diet
[2018-02-14] MEDS ORDERED: Cholecalciferol (D-3) 1,000 UNIT TABLET PO SCH (09:00)
== END 2018-02-11 10:37 | disposition home or self-care (01) | DRG 472 ==
LOC: SAMDAY 09:40 → 3NENU 17:40
PROVIDERS: ADMIT Orthopaedic Surgery Orthopaedic Surgery of the Spine; ATTEND Orthopaedic Surgery Orthopaedic Surgery of the Spine
PROC: SPICORP (2018-02-09 11:55)

== ENCOUNTER 2018-09-19 10:53 | Observation (INO) ==
--- NOTE | 2018-09-19 11:10 | Anesthesia Evaluation PreOp ---
Date of Encounter: 09/19/18 Time of Encounter: 11:10 - Past History Planned Operation: photo laser vaporization of prostate Cardiac History: DE, HTN, Hyperlipidemia, Cardiac Stent, Other (CAD- multiple cardiac stents, refused CABG x2, patient states he is physically active, able to climb stairs, do yard work, cut down trees. 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 History: Denies Any Significant HX Other Medical History: Denies Any Significant HX Anesthesia History: No Prior Anesthetic Complications (multiple prior surgeries without anesthetic complications) Alcohol Use: none Drug use: none Medications and Allergies Aspirin [Adult Aspirin Regimen] 81 mg PO DAILY 02/09/18 [History] Cholecalciferol (Vitamin D3) [Vitamin D3] 10,000 unit PO MO 02/09/18 [History] Clopidogrel [Plavix] 75 mg PO DAILY 02/09/18 [History] Fluconazole [Diflucan] 100 mg PO DAILY 02/09/18 [History] Lisinopril [Zestril] 10 mg PO DAILY 02/09/18 [History] Tamsulosin [Flomax] 0.4 mg PO DAILY 02/09/18 [History] OxyCODONE Immed Rel [Roxicodone 5 MG] 5 mg PO Q6HR PRN 7 Days #28 tablet 02/10/18 [Rx] Allergy/AdvReac Type Severity Reaction Status Date / Time morphine Allergy See Verified 08/30/18 08:45 Comments - Meds/Allergy Pre-op Review Medications Reviewed: Yes Allergies Reviewed: Yes Beta Blockers on Current Med List: No Anesthesia Results - Imaging EKG: report reviewed (sinus rhythm, with minor ST abnormalities) Additional studies: ECHO mildly dilated left ventricle, mild LV systolic dysfunction, LVEF 45% Anesthesia Exam Selected Entries 09/19/18 11:16 Temperature 97.7 F Pulse Rate 71 Respiratory Rate 18 Blood Pressure 160/90 O2 Sat by Pulse Oximetry 97 Weight: 103 kg NPO (# of Hours): over 8 hours - HEENT Pupil (Motor): Pupils equal Mallampati: II Teeth: Edentulous Oral Opening: Greater than 3 - Cardiac Rhythm: Regular Murmur: None - Pulmonary Breath Sounds: bilateral Clear Respiratory Effort: Symmetrical Anesthesia Assess/Plan ASA Score: 3 Level of consciousness: Cooperative Anesthetic Plan: General Monitoring Plan: Standard Monitors Recovery Plan: PACU (Discussed GA, risks. Agreed to proceed.)
--- NOTE | 2018-09-19 11:16 | History & Physical Report ---
Date of Encounter: 09/19/18 Time of Encounter: 11:15 24 Hour HP Update - Instructions Instructions: If the History and Physical is less than 30 days old and was completed prior to A.M. admission and or procedure and has NOT been updated on calendar day of procedure please complete this update prior to performing procedure. - Update Patient reports changes in Medical Condition: No Changes in examination, assessment, or condition: No Changes in Medication: No Preop tests/diagnostics Reviewed: Yes Surgery Remains Indicated: Yes Consent for Planned Operative Procedure(s) Verified: Yes - Pre-Operative Checklist Preoperative Checklist Indicated: Yes Prophylactic Antibiotic Ordered: Yes Home Medications Include Beta Dudley: No Is VTE Prophylaxis Indicated?: Yes
[2018-09-19] MEDS ORDERED: Acetaminophen IV 1,000 MG/100 ML INFUS..BTL IVPB ONE (11:21)
[2018-09-19] MEDS ORDERED: *HR* Labetalol 20 MG/4 ML SYRINGE IVP PRN (11:21)
[2018-09-19] MEDS ORDERED: Ondansetron 4 MG/2 ML VIAL IVP ONE (11:21)
[2018-09-19] MEDS ORDERED: *HR* HYDROmorphone (PF) 1 MG/ML SYRINGE IVP PRN (11:21)
[2018-09-19] MEDS ORDERED: *HR* HYDROmorphone 2 MG TABLET PO PRN (11:21)
[2018-09-19] MEDS ORDERED: CeFAZolin Syr 2,000MG/20 ML 2,000 MG/20 ML SYRINGE IVPB ONE (11:31)
[2018-09-19] MEDS: Ringers Solution, Lactated 1,000 ML IVC SCH ×2 (11:37→15:12)
[2018-09-19] MEDS ORDERED: Lidocaine -MPF 2% 2 ML VIAL ONE (11:50)
[2018-09-19] MEDS ORDERED: Ondansetron 4 MG/2 ML VIAL ONE (11:50)
[2018-09-19] MEDS ORDERED: Dexamethasone 4 MG/ML VIAL ONE (11:50)
[2018-09-19] MEDS ORDERED: *HR* FentaNYL (PF) 100 MCG/2 ML VIAL ONE ×2 (12:02→13:33)
[2018-09-19] MEDS ORDERED: *HR* Propofol 200 MG/20 ML VIAL IVP ONE (12:02)
[2018-09-19] MEDS ORDERED: *HR* PHENYLEPHRINE 1,000 MCG/10 ML SYRINGE IVP ONE (14:38)
[2018-09-19] MEDS ORDERED: Ketorolac 30 MG/ML VIAL ONE (14:43)
--- NOTE | 2018-09-19 14:49 | Operative Note ---
Date of procedure: 09/19/18 Pre-op diagnosis: Bladder stones, enlarged prostate with lower urinary tract symptoms Post-op diagnosis: same Procedure: Cystolitholapaxy Greenlight photo vaporization of prostate Implants: 20-Mongolian two-way catheter Complications: None Anesthesia: SHIRA Surgeon: Gagandeep Smith Was there an technical administrative assistant present: No Estimated blood loss (cc): 10 Specimen: bladder stone Condition: stable Disposition: PACU Procedure in Detail: Indications: José Miguel is a 72-year-old gentleman has a history of hematuria. In workup benign prostatic hyperplasia was noted with evidence of bladder stone. He elected to un dergo a cystolitholapaxy. He was informed of the risks of the procedure which include but are not limited to bleeding, infection, injury to other structures, recurrence, and the risk of anesthesia. He is willing to proceed. Procedure: After informed consent was obtained the patient was brought back to the operating room and placed in the supine position. A timeout was performed. General anesthesia was administered and a laryngeal mask airway was placed. He was then placed in the lithotomy position. His genitalia were prepped and draped in the usual sterile fashion. The cystoscope was then introduced. Anterior urethra was unremarkable. The prostate showed trilobar hyperplasia with a median bar. Upon entering the bladder there was 2+ trabeculations. The ureteral orifices were in the normal orthotopic position. Multiple small stones were seen at the trigone. The 1000 micron laser fiber was inserted. The stones were broken into small pieces. These fragments were irrigated out. The bladder was then drained. Once all the bladder stones were removed and proceeded with the greenlight laser vaporization of prostate. I then inserted the laser fiber. The median lobe was vaporized to improve our flow. Attention was turned to the right lobe and it was vaporized. I then vaporized the left lobe. Once the lateral lobes were treated a small amount of vaporization was performed anteriorly. At the end of the procedure an incision was made at the 5:00 and 7:00 regions from the bladder neck down to the verumontanum. The intervening median lobe was vaporized afterwards leading to a nice flat bladder neck. Hemostasis was excellent. The verumontanum and ureteral orifices were identified and were free of injury. A 20-Mongolian two-way catheter was then placed, 30 mL was instilled in the balloon. The catheter was left on mild traction. The catheter was irrigated and it was clear. The patient was then awakened from general anesthesia, brought to recovery room in good condition. All sponge, needle, and instrument counts were correct. Approximately 239,000 joules were administered.
--- NOTE | 2018-09-19 15:32 | Anesthesia Evaluation Post Op ---
Date of Encounter: 09/19/18 Time of Encounter: 15:32 - Vital Signs Vital Signs: Vital Signs/O2 Sat, Most Current Temp Pulse Resp BP Pulse Ox 97.1 F L 69 15 163/88 95 09/19/18 15:26 09/19/18 15:26 09/19/18 15:26 09/19/18 15:26 09/19/18 15:26 - Lungs Lungs: Clear Ascult./Percussion - Airway Airway: Non-obstructed - Cardiovascular Regular Rate - Mental Status Mental Status: Asleep with brisk response to light stimulation - Pain Pain Scale: 0 Pain Scale used: Numeric (1 - 10) - Nausea Vomiting Nausea Vomiting: Not Present - Hydration Hydration: NPO, Webster catheter - Discharge PostOp Status: Transfer Patient to floor
[2018-09-19] MEDS ORDERED: Naloxone 0.4 MG/ML INJ IVP PRN (16:09)
[2018-09-19] MEDS ORDERED: Acetaminophen 325 MG TABLET PO PRN (16:09)
[2018-09-19] MEDS ORDERED: Ondansetron 4 MG/2 ML VIAL IVP PRN (16:09)
[2018-09-19] MEDS: 0.9 % Sodium Chloride 1,000 ML IVC SCH (17:15)
--- NOTE | 2018-09-19 19:42 | Urology Procedure Note ---
Date of Encounter: 09/19/18 Time of Encounter: 19:40 Procedures:Urology - Bladder Irrigation/Clot Evacuation Consent obtained: verbal consent Irrigation: saline Amount of Clot: 60 cc Patient tolerated procedure: well Continuous Bladder Irrigation: Yes Complications: none Additional comments: I was contacted by the nurses because of concern regarding increasing hematuria. On my evaluation the patient was sitting in a chair at the bedside. The urine in the catheter was opaque red with obvious clotting in the tubing. He had blood draining around the catheter and soaking his gown. I made the decision to change his catheter. I removed the existing two-way catheter and attempted to place a three-way 24-Hong Konger hematuria catheter. Initially the catheter would not pass. I had used a Urojet prior to attempting placement. I then obtained a zip wire which did pass easily into the bladder and I was able to pass the catheter over the zip wire and into the bladder without resistance. I did irrigate some larger more gelatinous clots and started CBI. He required a medium to rapid drip to maintain light pink color. His vital signs were stable with no tachycardia or hypotension. He was O2 saturation of 98%. He tolerated the procedure well and will be reassessed in the morning.
[2018-09-20] MEDS: 0.9 % Sodium Chloride 1,000 ML IVC SCH ×3 (01:57→18:10)
[2018-09-20] MEDS: Fluconazole 100 MG TABLET PO SCH (08:55)
--- NOTE | 2018-09-20 10:39 | Urology Progress Note ---
Addendum entered and electronically signed by Gagandeep Smith MD 09/20/18 16:28: The patient was seen and examined with the physician's assistant operations manager. I agree with the assessment and plan. He developed gross hematuria after the greenlight procedure. His catheter was upsized. Urine was becoming more clear overnight. I elected to keep him in the hospital today to monitor his urine color. Hopefully, we can remove his catheter tomorrow. Original Note: Date of Encounter: 09/20/18 Time of Encounter: 10:00 - Assessment and Plan (1) Gross hematuria Current Visit: Yes Status: Acute (2) BPH loc w/o ur obs/LUTS Current Visit: Yes Status: Acute Assessment and plan: Patient is a 72-year-old male who presents one day status post cystolitholapaxy, greenlight photo vaporization of prostate. Patient experienced some increased hematuria, and a 24-Yemeni three-way hematuria catheter was placed with continuous bladder irrigation. CBI is on very slow flow, and urine appears to be clearing. Hemoglobin is stable. We will continue to monitor patient overnight and consider discharge in the morning if urine remains clear. Progress Note Narrative: Postoperative day #1. Patient seen and examined sitting upright in chair in no apparent distress. Patient reports pain is well-controlled. Webster catheter is indwelling with slow flow CBI and draining clear urine into bedside bag. Patient denies catheter discomfort or feeling of obstruction. Patient is tolerating normal diet without nausea or vomiting. Objective Initial Vital Signs Temp Pulse Resp BP Pulse Ox 97.7 F 71 18 160/90 97 09/19/18 11:16 09/19/18 11:16 09/19/18 11:16 09/19/18 11:16 09/19/18 11:16 - General physical appearance Present: well developed, no distress, no pain - Respiratory Present: normal expansion, normal respiratory effort - Abdomen Present: soft, non tender - Genitourinary Urine Appearance: Present: Clear, Sediment (Scant). Absent: Hematuria - Integumentary Present: no rash, no abnormal pigmentation - Musculoskeletal Present: normal posture - Psychiatric Present: oriented to time, oriented to person, oriented to place, speech is normal, memory intact Consult Discharge Plan - Plan Referrals: Shannon Ojeda DO [Primary Care Provider] -
[2018-09-20] MEDS: *HR* HYDROcodone/Acet 5/325 mg TABLET PO PRN (11:58)
[2018-09-21] MEDS: 0.9 % Sodium Chloride 1,000 ML IVC SCH ×2 (02:25→11:15)
[2018-09-21] MEDS: *HR* HYDROcodone/Acet 5/325 mg TABLET PO PRN ×2 (05:16→19:49)
[2018-09-21] MEDS: Fluconazole 100 MG TABLET PO SCH (09:09)
--- NOTE | 2018-09-21 09:56 | Discharge Summary ---
<Liliana Navarro N - Last Filed: 09/22/18 08:07> Orders not resulted at time of discharge: Pending orders 09/19/18 14:41 Calculi (stone) Analysis Routine Date of Encounter: 09/22/18 Time of Encounter: 08:08 - Discharge Diagnosis (1) Gross hematuria Priority: Secondary Status: Acute (2) BPH loc w/o ur obs/LUTS Priority: Primary Status: Acute - Hospital Course Hospital course: Mr. Moran is a 72 year old male who presents with a history of hematuria, bladder stones, and benign prostatic hypertrophy. On 09/19/2018, patient was taken to the operating room where he underwent cystolitholapaxy, Greenlight photo vaporization of prostate. There were no surgical complications, and the patient tolerated the procedure well. Postoperatively, patient experienced increased hematuria, clot retention, and ultimately the patient had to undergo an upsized catheter placement to a 24-Wolof three-way hematuria catheter. Patient was placed on continuous bladder irrigation. On postoperative day 2, continuous bladder irrigation was discontinued, and urine remained clear. Hair catheter was removed, and patient underwent serial urine evaluation. Unfortunately, patient was unable to void after hair was removed. An 18Fr coude tip catheter was replaced successfully. Discussed maintaining indwelling hair catheter for one week and then undergoing voiding trial. Patient was dismissed in satisfactory condition. Postoperative expectations, restrictions, activity and follow-up were discussed with patient, and patient verbalized understanding. Time spent discussing smoking cessation with patient: 3 to 10 minutes - Time Spent with Patient Total time spent providing and/or coordinating discharge services: Less than 30 minutes Procedures and tests throughout hospitalization: Cystolitholapaxy Greenlight photo vaporization of prostate Complex Catheter Placement - Discharge Medications Prescriptions: Docusate [Colace] 100 mg PO BID #30 capsule Sulfamethoxazole/Trimeth DS [Bactrim DS] 1 each PO BID #10 tablet Home Medications: Aspirin [Adult Aspirin Regimen] 81 mg PO DAILY 02/09/18 [History] Cholecalciferol (Vitamin D3) [Vitamin D3] 10,000 unit PO MO 02/09/18 [History] Clopidogrel [Plavix] 75 mg PO DAILY 02/09/18 [History] Fluconazole [Diflucan] 100 mg PO DAILY 02/09/18 [History] Lisinopril [Zestril] 10 mg PO DAILY 02/09/18 [History] Tamsulosin [Flomax] 0.4 mg PO DAILY 02/09/18 [History] Docusate [Colace] 100 mg PO BID #30 capsule 09/21/18 [Rx] Sulfamethoxazole/Trimeth DS [Bactrim DS] 1 each PO BID #10 tablet 09/21/18 [Rx] Allergies/Adverse Reactions: Allergy/AdvReac Type Severity Reaction Status Date / Time morphine Allergy See Verified 09/19/18 11:30 Comments Date of admission: 09/20/18 16:29 Primary care physician: Shannon Ojeda DO Discharging clinician: Liliana Navarro Anticipated date of discharge: 09/21/18 Exam Initial Vital Signs Temp Pulse Resp BP Pulse Ox 97.7 F 71 18 160/90 97 09/19/18 11:16 09/19/18 11:16 09/19/18 11:16 09/19/18 11:16 09/19/18 11:16 - General physical appearance Present: well developed, no distress, no pain - Eyes Present: PERRL, normal ocular movement - ENT Present: normal nares, no hearing loss, no congestion - Neck Present: no masses, trachea midline - Respiratory Present: normal respiratory effort - Abdomen Abdomen: Present: soft, non tender - Genitourinary other (Urine is transparent pink lemonade) - Integumentary Present: no rash, no abnormal pigmentation - Neurologic Present: normal coordination - Patient Status Disposition: Home, Self-Care Condition: Good Functional capacity at discharge: independent ambulation Overall status at discharge: patient is progressing back to baseline - Discharge Instructions Instructions: Hair Catheter Placement and Care (DC), Urinary Leg Bag (GEN) Follow Up With: Shannon Ojeda DO [Primary Care Provider] - Gagandeep Smith MD [Partnered Physician] - 09/29/18 8:00 am Additional Instructions: Call if fever greater than 101 degrees. May expect blood in the urine, but call if urine appears opaque wine color. Hold all anticoagulation for 1 week as long as urine is still clear yellow; call if urine appears red after restarting anticoagulation. May expect irritating voiding symptoms such as frequency, hesitancy, burning, urgency. Okay to use Azo [id number]. Okay to shower. No tub baths, hot tubs, or swimming. No lifting greater than 10 pounds or heavy activity. Okay to use [id number] stool softeners twice daily. Catheter care instructions provided by nursing staff. May follow up in urology office for voiding trial and catheter removal on Wednesday, September 26 as discussed. - Diet and Activity Activity: increase activity as tolerated Diet: advance to your usual diet <PresybeterianGagandeep rose W - Last Filed: 09/22/18 11:38> Orders not resulted at time of discharge: Pending orders 09/19/18 14:41 Calculi (stone) Analysis Routine Date of Encounter: 09/22/18 - Discharge Diagnosis (1) BPH loc w/o ur obs/LUTS Status: Acute (2) Gross hematuria Status: Acute - Hospital Course Hospital course: Patient was seen on the day of discharge. He will be discharged home with a catheteter. - Time Spent with Patient Total time spent providing and/or coordinating discharge services: Date of admission: 09/20/18 16:29 Primary care physician: Shannon Ojeda, DO Exam Initial Vital Signs Temp Pulse Resp BP Pulse Ox 97.7 F 71 18 160/90 97 09/19/18 11:16 09/19/18 11:16 09/19/18 11:16 09/19/18 11:16 09/19/18 11:16 - Patient Status Functional capacity at discharge: independent ambulation Overall status at discharge: patient is progressing back to baseline
--- NOTE | 2018-09-21 14:10 | Urology Procedure Note ---
Date of Encounter: 09/21/18 Time of Encounter: 14:07 Procedures:Urology - Catheter Insertion (Urinary) Bladder Scan/Ultrasound used before catheterization: Yes (349mL) Estimated amount of urin (mLs): 600 Preparation: Povidone-Iodine, Urojet, Lidocaine Jelly Type of catheter inserted: 2 way, coude tip Catheter Slovak Size: 18 Topical anesthesia used: Yes Results: successfully catheterized-immediate flow Urine Appearance: Clear, Sediment Patient tolerated procedure: well, no complications Complications: none Additional comments: Nurse called at 1300 stating patient was unable to void since catheter removal this morning. Patient feeling increased discomfort and pressure with PVR 349mL. I was able to successfully pass an 18Fr coude catheter per Dr. Smith's recommendation with immediate return of dark yellow urine, 600cc, with moderate sediment. Patient tolerated well with no complications.
--- NOTE | 2018-09-21 17:39 | Urology Progress Note ---
Date of Encounter: 09/21/18 Time of Encounter: 17:37 - Assessment and Plan (1) BPH loc w/o ur obs/LUTS Current Visit: Yes Status: Acute Assessment and plan: POD #2 s/p PVP. 1. We removed his catheter today, but he was not able to void. We replaced his catheter with an 18 Slovenian Coude. We will keep him in the hospital today and plan for d/c home tomorrow. (2) Gross hematuria Current Visit: Yes Status: Acute Progress Note Narrative: Patient seen and examined today. POD #2 s/p PVP. His urine is clear on slow C BI. Objective Initial Vital Signs Temp Pulse Resp BP Pulse Ox 97.7 F 71 18 160/90 97 09/19/18 11:16 09/19/18 11:16 09/19/18 11:16 09/19/18 11:16 09/19/18 11:16 - General physical appearance Present: well developed, well nourished, no distress - Respiratory Present: normal expansion - Abdomen Present: soft - Genitourinary Present: normal penis with no external lesions Urine Appearance: Present: Clear Consult Discharge Plan - Plan Additional Instructions: Call if fever greater than 101 degrees. May expect blood in the urine, but call if urine appears opaque wine color. Hold all anticoagulation for 1 week as long as urine is still clear yellow; call if urine appears red after restarting anticoagulation. May expect irritating voiding symptoms such as frequency, hesitancy, burning, urgency. Okay to use Azo [id number]. Okay to shower. No tub baths, hot tubs, or swimming. No lifting greater than 10 pounds or heavy activity. Okay to drive as long as you are no longer taking narcotic pain medicine. Okay to use [id number] stool softeners twice daily. Catheter care instructions provided by nursing staff. May follow up in urology office for voiding trial and catheter removal. Referrals: Shannon Ojeda DO [Primary Care Provider] - Gagandeep Smith MD [Partnered Physician] - 09/29/18 8:00 am Prescriptions: Docusate [Colace] 100 mg PO BID #30 capsule Sulfamethoxazole/Trimeth DS [Bactrim DS] 1 each PO BID #10 tablet
[2018-09-22 06:27] VITALS: BP 131/70
[2018-09-22] MEDS: Fluconazole 100 MG TABLET PO SCH (09:27)
[2018-09-25 07:57] LABS: Calculi Mass 228 mg
== END 2018-09-22 11:23 | disposition home or self-care (01) ==
LOC: SAMDAY 10:53 → 3ANU 10:53
PROVIDERS: ADMIT Urology; ATTEND Urology

== ENCOUNTER 2020-05-01 09:58 | Observation (INO) ==
[2020-05-01] MEDS ORDERED: 0.9 % Sodium Chloride 500 ML IVC ONE (10:17)
[2020-05-01 10:40] LABS: Hematocrit 38.6 % (37.5-50.1); Hemoglobin 12.8 g/dL (12.9-16.9); Lymphocytes # 0.5 K/mcL (0.6-4.6); Mean Corpuscular HGB Conc 33.2 g/dL (31.6-35.5); Mean Corpuscular Volume 93.5 fL (83.0-100.0); Mean Platelet Volume 9.6 fL (9.4-12.4); Platelet Count 145 K/mcL (140-400); Red Blood Count 4.13 M/mcL (4.19-5.50); Red Cell Distribution Width 12.3 % (11.5-14.5); White Blood Count 4.4 K/mcL (4.3-11.1)
[2020-05-01 11:07] LABS: Alanine Aminotransferase 13 Units/L (7-52); Albumin 4.1 g/dL (3.5-5.7); Albumin/Globulin Ratio 1.4 (1.1-2.2); Alkaline Phosphatase 61 Units/L (34-104); Aspartate Amino Transferase 13 Units/L (13-39); BUN/Creatinine Ratio 22 (6-26); Bilirubin,Total 1.1 mg/dL (0.3-1.0); Blood Urea Nitrogen 30 mg/dL (8-23); Calcium 8.8 mg/dL (8.6-10.3); Carbon Dioxide 23 mEq/L (23-29); Chloride 107 mEq/L (98-107); Globulin 2.9 g/dL (2.4-3.5); Glucose 143 mg/dL (70-105); Osmolality,Calculated 297 (280-300); Sodium 139 mEq/L (136-145); Troponin I 0.04 ng/mL (< 0.04); eGFR For African Americans > 60 (> 60); eGFR For Non-African Americans 50 (> 60)
[2020-05-01 11:09] LABS: Neutrophils # 2.9 K/mcL (1.6-8.9); Platelet Estimate Normal (Normal)
[2020-05-01 11:37] LABS: Adenovirus Not Detected (Not Detect); Bordetella Pertussis Not Detected (Not Detect); Chlamydophila pneumoniae Not Detected (Not Detect); Coronavirus 229E Not Detected (Not Detect); Coronavirus HKU1 Not Detected (Not Detect); Coronavirus NL63 Not Detected (Not Detect); Coronavirus OC43 Not Detected (Not Detect); Human Metapneumovirus Not Detected (Not Detect); Human Rhinovirus/Enterovirus Not Detected (Not Detect); Influenza A Subtype 2009 H1 Not Detected (Not Detect); Influenza B Not Detected (Not Detect); Mycoplasma pneumoniae Not Detected (Not Detect); Parainfluenza Virus 1 Not Detected (Not Detect); Parainfluenza Virus 2 Not Detected (Not Detect); Parainfluenza Virus 3 Not Detected (Not Detect); Parainfluenza Virus 4 Not Detected (Not Detect); Respiratory Syncytial Virus Not Detected (Not Detect); SARS-CoV-2 Not Detected (Not Detect)
[2020-05-01] MEDS ORDERED: Aspirin 325 MG TABLET PO ONE (12:21)
[2020-05-01] MEDS ORDERED: Naloxone 0.4 MG/ML INJ IVP PRN (12:27)
[2020-05-01] MEDS ORDERED: MetroNIDAZOLE 500 MG/100 ML 500 MG/100 ML BAG IVPB SCH ×3 (14:08→22:00)
[2020-05-01] MEDS: 0.9 % Sodium Chloride 1,000 ML IVC SCH (14:42)
[2020-05-01] MEDS ORDERED: *HR* HYDROcodone/Acet 5/325 mg TABLET PO PRN (14:55)
[2020-05-01] MEDS ORDERED: Perflutren Lipid Microsphere 1.3 ML in 0.9 % Sodium Chloride 8.7 ML IVP PRN (14:56)
[2020-05-01] MEDS ORDERED: Ondansetron 4 MG/2 ML VIAL IVP PRN (15:22)
[2020-05-01] MEDS: *HR* Heparin 5,000 UNIT/ML VIAL SQ SCH (17:14)
[2020-05-01] MEDS ORDERED: Acetaminophen 325 MG TABLET PO PRN (20:09)
[2020-05-02 00:36] LABS: Bilirubin,Urine Negative (Negative); Blood,Urine Negative (Negative); Clarity,Urine Clear (Clear); Color,Urine Light-Yellow (Yellow); Glucose,Urine (UA) Normal (Normal); Ketones,Urine Negative (Negative); Leukocyte Esterase,Urine Negative (Negative); Nitrite,Urine Negative (Negative); PH,Urine 5.5 pH Units (5.0-8.0); Protein,Urine Trace mg/dL (Neg-Trace); Specific Gravity,Urine 1.017 (1.010-1.025); Urobilinogen,Urine Normal (Normal)
[2020-05-02 01:39] LABS: Basophils % 0.5 %; Eosinophils # 0.1 K/mcL (0.0-0.6); Eosinophils % 1.2 %; Hematocrit 36.4 % (37.5-50.1); Immature Granulocytes % 0.2 % (0-4); Lymphocytes # 1.2 K/mcL (0.6-4.6); Lymphocytes % 27.8 %; Mean Corpuscular Hemoglobin 30.7 pg (28.0-33.3); Mean Corpuscular Volume 93.1 fL (83.0-100.0); Mean Platelet Volume 10.2 fL (9.4-12.4); Monocytes # 0.6 K/mcL (0.0-1.3); Monocytes % 14.4 %; Neutrophils # 2.4 K/mcL (1.6-8.9); Platelet Count 137 K/mcL (140-400); Red Blood Count 3.91 M/mcL (4.19-5.50); Red Cell Distribution Width 12.5 % (11.5-14.5); Segmented Neutrophils % 55.9 %; White Blood Count 4.3 K/mcL (4.3-11.1)
[2020-05-02 01:56] LABS: Alanine Aminotransferase 12 Units/L (7-52); Albumin 3.8 g/dL (3.5-5.7); Albumin/Globulin Ratio 1.4 (1.1-2.2); Alkaline Phosphatase 55 Units/L (34-104); Aspartate Amino Transferase 15 Units/L (13-39); BUN/Creatinine Ratio 28 (6-26); Bilirubin,Total 1.1 mg/dL (0.3-1.0); Blood Urea Nitrogen 31 mg/dL (8-23); Calcium 8.1 mg/dL (8.6-10.3); Carbon Dioxide 19 mEq/L (23-29); Chloride 108 mEq/L (98-107); Globulin 2.7 g/dL (2.4-3.5); Glucose 118 mg/dL (70-105); Magnesium 1.4 mg/dL (1.6-2.6); Osmolality,Calculated 292 (280-300); Phosphorous 2.3 mg/dL (2.7-4.5); Potassium 3.6 mEq/L (3.5-5.1); Sodium 137 mEq/L (136-145); Total Protein 6.5 g/dL (6.4-8.9); eGFR For African Americans > 60 (> 60); eGFR For Non-African Americans > 60 (> 60)
[2020-05-02 01:59] LABS: Chol/HDL Ratio 3.4 (0-4.9)
[2020-05-02 02:20] LABS: Adenovirus F 40/41 PCR Not detected (Not detect); Astrovirus PCR Not detected (Not detect); C.difficile Toxin A/B Gene PCR Not detected (Not detect); Cryptosporidium by PCR Not detected (Not detect); Cyclospora cayetanensis PCR Not detected (Not detect); E. coli O157 by PCR Not detected (Not detect); Entamoeba histolytica PCR Not detected (Not detect); Enteroaggregative E.coli(EAEC) Not detected (Not detect); Enteropathogenic E.coli(EPEC) Not detected (Not detect); Enterotoxigenic E.coli (ETEC) Not detected (Not detect); Giardia lamblia PCR Not detected (Not detect); Norovirus GI/GII PCR Not detected (Not detect); Plesiomonas shigelloides PCR Not detected (Not detect); Rotavirus A PCR Not detected (Not detect); Salmonella PCR Not detected (Not detect); Sapovirus PCR Not detected (Not detect); Shig/EnteroinvasiveE coli EIEC Not detected (Not detect); Shigalike tox-prod E coli STEC Not detected (Not detect); Vibrio PCR Not detected (Not detect); Vibrio cholerae PCR Not detected (Not detect); Yersinia enterocolitica PCR Not detected (Not detect)
[2020-05-02 02:23] LABS: Campylobacter by PCR DETECTED (Not detect)
[2020-05-02 02:36] LABS: Reactive Lymphocytes Present (Not Present)
[2020-05-02 02:37] LABS: Platelet Estimate Decreased (Normal)
[2020-05-02] MEDS: 0.9 % Sodium Chloride 1,000 ML IVC SCH ×2 (03:36→03:41)
[2020-05-02] MEDS: *HR* Heparin 5,000 UNIT/ML VIAL SQ SCH ×3 (04:52→17:24)
[2020-05-02] MEDS: Isosorbide MONOnitrate (24 HR) 60 MG TAB.ER.24H PO SCH (09:11)
[2020-05-02] MEDS: Aspirin Enteric Coated 81 MG Tablet PO SCH (09:12)
[2020-05-02] MEDS: Cholecalciferol (D-3) 1,000 UNIT (25MCG) TABLET PO SCH (09:12)
[2020-05-02] MEDS: Azithromycin 250 MG TABLET PO SCH (09:12)
[2020-05-02 11:16] LABS: Estimated Average Glucose 123 mg/dl
[2020-05-03 03:42] LABS: Eosinophils # 0.1 K/mcL (0.0-0.6); Eosinophils % 3.2 %; Hematocrit 33.4 % (37.5-50.1); Hemoglobin 11.2 g/dL (12.9-16.9); Immature Granulocytes % 0.6 % (0-4); Lymphocytes # 0.9 K/mcL (0.6-4.6); Lymphocytes % 25.7 %; Mean Corpuscular HGB Conc 33.5 g/dL (31.6-35.5); Mean Corpuscular Hemoglobin 30.4 pg (28.0-33.3); Mean Corpuscular Volume 90.8 fL (83.0-100.0); Mean Platelet Volume 10.1 fL (9.4-12.4); Monocytes # 0.5 K/mcL (0.0-1.3); Neutrophils # 1.9 K/mcL (1.6-8.9); Platelet Count 121 K/mcL (140-400); Red Blood Count 3.68 M/mcL (4.19-5.50); Red Cell Distribution Width 12.4 % (11.5-14.5); Segmented Neutrophils % 56.5 %; White Blood Count 3.4 K/mcL (4.3-11.1)
[2020-05-03 04:01] LABS: BUN/Creatinine Ratio 21 (6-26); Blood Urea Nitrogen 19 mg/dL (8-23); Calcium 8.1 mg/dL (8.6-10.3); Carbon Dioxide 22 mEq/L (23-29); Chloride 111 mEq/L (98-107); Glucose 103 mg/dL (70-105); Osmolality,Calculated 293 (280-300); Potassium 3.4 mEq/L (3.5-5.1); Sodium 140 mEq/L (136-145); eGFR For African Americans > 60 (> 60); eGFR For Non-African Americans > 60 (> 60)
[2020-05-03 04:12] LABS: Platelet Estimate Slight Decrease (Normal)
[2020-05-03] MEDS: *HR* Heparin 5,000 UNIT/ML VIAL SQ SCH (05:42)
[2020-05-03 08:02] VITALS: BP 144/82
[2020-05-03] MEDS: Isosorbide MONOnitrate (24 HR) 60 MG TAB.ER.24H PO SCH (09:20)
[2020-05-03] MEDS: Aspirin Enteric Coated 81 MG Tablet PO SCH (09:20)
[2020-05-03] MEDS: Azithromycin 250 MG TABLET PO SCH (09:20)
[2020-05-03] MEDS: Cholecalciferol (D-3) 1,000 UNIT (25MCG) TABLET PO SCH (09:20)
== END 2020-05-03 12:24 | disposition home or self-care (01) ==
LOC: 3ANU 09:58 → EMEROOARM 09:58 → SUATTDRO 12:37 → 3ANU 13:32
PROVIDERS: ADMIT Internal Medicine; ATTEND Internal Medicine

== ENCOUNTER 2020-10-11 10:19 | Inpatient (IN) ==
[2020-10-11 11:05] LABS: Basophils % 0.2 %; Eosinophils # 0.1 K/mcL (0.0-0.6); Eosinophils % 1.3 %; Hematocrit 41.6 % (37.5-50.1); Hemoglobin 13.9 g/dL (12.9-16.9); Immature Granulocytes % 0.2 % (0-4); Lymphocytes # 1.4 K/mcL (0.6-4.6); Lymphocytes % 25.5 %; Mean Corpuscular HGB Conc 33.4 g/dL (31.6-35.5); Mean Corpuscular Volume 89.8 fL (83.0-100.0); Mean Platelet Volume 9.9 fL (9.4-12.4); Monocytes # 0.3 K/mcL (0.0-1.3); Monocytes % 6.4 %; Neutrophils # 3.5 K/mcL (1.6-8.9); Platelet Count 185 K/mcL (140-400); Red Blood Count 4.63 M/mcL (4.19-5.50); Red Cell Distribution Width 12.7 % (11.5-14.5); Segmented Neutrophils % 66.4 %; White Blood Count 5.3 K/mcL (4.3-11.1)
[2020-10-11 11:30] LABS: Alanine Aminotransferase 11 Units/L (7-52); Albumin 4.1 g/dL (3.5-5.7); Albumin/Globulin Ratio 1.4 (1.1-2.2); Alkaline Phosphatase 76 Units/L (34-104); Aspartate Amino Transferase 15 Units/L (13-39); BUN/Creatinine Ratio 23 (6-26); Bilirubin,Total 0.7 mg/dL (0.3-1.0); Blood Urea Nitrogen 28 mg/dL (8-23); Calcium 9.7 mg/dL (8.6-10.3); Carbon Dioxide 27 mEq/L (23-29); Chloride 107 mEq/L (98-107); Globulin 2.9 g/dL (2.4-3.5); Glucose 129 mg/dL (70-105); Osmolality,Calculated 295 (280-300); Potassium 4.1 mEq/L (3.5-5.1); Sodium 139 mEq/L (136-145); eGFR For African Americans > 60 (> 60); eGFR For Non-African Americans 58 (> 60)
[2020-10-11 11:32] LABS: INR 1.2; Prothrombin Time 13.4 Seconds (9.4-12.1)
[2020-10-11 11:34] LABS: Troponin I 0.04 ng/mL (< 0.04)
[2020-10-11] MEDS ORDERED: Isovue-370 500 ML BOTTLE IVP ONE (12:03)
[2020-10-11] MEDS ORDERED: Ondansetron ODT 4 MG TAB.RAPDIS SL PRN (15:03)
[2020-10-11] MEDS ORDERED: Acetaminophen 325 MG TABLET PO PRN (15:03)
[2020-10-11] MEDS ORDERED: Furosemide 40 MG/4 ML VIAL IVP ONE (15:43)
[2020-10-11] MEDS ORDERED: Perflutren Lipid Microsphere 1.3 ML in 0.9 % Sodium Chloride 8.7 ML IVP PRN (15:45)
[2020-10-11] MEDS ORDERED: Aspirin 325 MG TABLET PO ONE (15:47)
[2020-10-12 03:29] LABS: Hematocrit 41.4 % (37.5-50.1); Mean Corpuscular HGB Conc 33.8 g/dL (31.6-35.5); Mean Corpuscular Hemoglobin 30.2 pg (28.0-33.3); Mean Corpuscular Volume 89.2 fL (83.0-100.0); Mean Platelet Volume 9.9 fL (9.4-12.4); Platelet Count 164 K/mcL (140-400); Red Blood Count 4.64 M/mcL (4.19-5.50); Red Cell Distribution Width 12.7 % (11.5-14.5); White Blood Count 5.4 K/mcL (4.3-11.1)
[2020-10-12 03:47] LABS: BUN/Creatinine Ratio 27 (6-26); Blood Urea Nitrogen 31 mg/dL (8-23); Calcium 9.8 mg/dL (8.6-10.3); Carbon Dioxide 25 mEq/L (23-29); Chloride 106 mEq/L (98-107); Glucose 100 mg/dL (70-105); Magnesium 1.8 mg/dL (1.6-2.6); Osmolality,Calculated 295 (280-300); Potassium 3.8 mEq/L (3.5-5.1); Sodium 139 mEq/L (136-145); eGFR For African Americans > 60 (> 60); eGFR For Non-African Americans > 60 (> 60)
[2020-10-12] MEDS: Aspirin 81 MG TAB.CHEW PO SCH (07:33)
[2020-10-12] MEDS: Furosemide 40 MG/4 ML VIAL IVP SCH ×2 (07:33→19:59)
[2020-10-12] MEDS: lisinopriL 10 MG TABLET PO SCH (13:28)
[2020-10-12] MEDS: Metoprolol XL (24 HR) Succ 25 MG TAB.ER.24H PO SCH (13:29)
[2020-10-13 03:14] LABS: Hematocrit 43.5 % (37.5-50.1); Hemoglobin 14.9 g/dL (12.9-16.9); Mean Corpuscular HGB Conc 34.3 g/dL (31.6-35.5); Mean Corpuscular Hemoglobin 30.3 pg (28.0-33.3); Mean Corpuscular Volume 88.6 fL (83.0-100.0); Mean Platelet Volume 10.1 fL (9.4-12.4); Platelet Count 173 K/mcL (140-400); Red Blood Count 4.91 M/mcL (4.19-5.50); Red Cell Distribution Width 12.7 % (11.5-14.5); White Blood Count 6.8 K/mcL (4.3-11.1)
[2020-10-13 03:36] LABS: BUN/Creatinine Ratio 30 (6-26); Blood Urea Nitrogen 38 mg/dL (8-23); Calcium 9.8 mg/dL (8.6-10.3); Carbon Dioxide 26 mEq/L (23-29); Chloride 104 mEq/L (98-107); Glucose 112 mg/dL (70-105); Osmolality,Calculated 300 (280-300); Potassium 3.6 mEq/L (3.5-5.1); Sodium 140 mEq/L (136-145); eGFR For African Americans > 60 (> 60); eGFR For Non-African Americans 55 (> 60)
[2020-10-13] MEDS: Aspirin 81 MG TAB.CHEW PO SCH (07:38)
[2020-10-13] MEDS: Metoprolol XL (24 HR) Succ 25 MG TAB.ER.24H PO SCH (07:38)
[2020-10-13] MEDS: lisinopriL 10 MG TABLET PO SCH (07:38)
[2020-10-13] MEDS ORDERED: Furosemide 40 MG/4 ML VIAL IVP SCH (09:00)
[2020-10-13 09:48] LABS: % Iron Saturation 15 % (20-55); Iron 48 mcg/dL (65-175); Magnesium 1.8 mg/dL (1.6-2.6); Transferrin 231 mg/dL (203-362)
[2020-10-13 10:06] LABS: Ferritin 66 ng/mL (20-250)
[2020-10-13] MEDS: Isosorbide MONOnitrate (24 HR) 30 MG TAB.ER.24H PO SCH (15:50)
[2020-10-13] MEDS ORDERED: Iron Sucrose Complex 400 MG in 0.9 % Sodium Chloride 250 ML IVPB ONE (16:19)
[2020-10-14 01:27] LABS: Hematocrit 39.9 % (37.5-50.1); Hemoglobin 13.7 g/dL (12.9-16.9); Mean Corpuscular HGB Conc 34.3 g/dL (31.6-35.5); Mean Corpuscular Hemoglobin 30.6 pg (28.0-33.3); Mean Corpuscular Volume 89.3 fL (83.0-100.0); Mean Platelet Volume 10.1 fL (9.4-12.4); Platelet Count 153 K/mcL (140-400); Red Blood Count 4.47 M/mcL (4.19-5.50); Red Cell Distribution Width 12.6 % (11.5-14.5); White Blood Count 7.2 K/mcL (4.3-11.1)
[2020-10-14 01:42] LABS: Calcium 9.4 mg/dL (8.6-10.3); Magnesium 2.4 mg/dL (1.6-2.6)
[2020-10-14] MEDS: Aspirin 81 MG TAB.CHEW PO SCH (08:33)
[2020-10-14] MEDS: Metoprolol XL (24 HR) Succ 25 MG TAB.ER.24H PO SCH (08:34)
[2020-10-14] MEDS: Isosorbide MONOnitrate (24 HR) 30 MG TAB.ER.24H PO SCH (08:34)
[2020-10-14] MEDS: Iron Sucrose Complex 250 MG in 0.9 % Sodium Chloride 250 ML IVPB SCH (08:35)
[2020-10-15 02:04] LABS: BUN/Creatinine Ratio 40 (6-26); Blood Urea Nitrogen 51 mg/dL (8-23); Calcium 9.6 mg/dL (8.6-10.3); Carbon Dioxide 24 mEq/L (23-29); Chloride 105 mEq/L (98-107); Glucose 141 mg/dL (70-105); Osmolality,Calculated 304 (280-300); Potassium 3.8 mEq/L (3.5-5.1); Sodium 139 mEq/L (136-145); eGFR For African Americans > 60 (> 60); eGFR For Non-African Americans 55 (> 60)
[2020-10-15] MEDS: Isosorbide MONOnitrate (24 HR) 30 MG TAB.ER.24H PO SCH (07:47)
[2020-10-15] MEDS: Metoprolol XL (24 HR) Succ 25 MG TAB.ER.24H PO SCH (07:48)
[2020-10-15] MEDS: Aspirin 81 MG TAB.CHEW PO SCH (07:48)
[2020-10-15] MEDS: Iron Sucrose Complex 250 MG in 0.9 % Sodium Chloride 250 ML IVPB SCH (12:55)
[2020-10-15] MEDS ORDERED: Heparin 1,000 UNITS/500 mL 500 ML ONE (15:13)
[2020-10-15] MEDS ORDERED: ISOVUE-370 200 ML INFUS..BTL ONE (15:13)
[2020-10-15] MEDS ORDERED: Nitroglycerin 1,000 MCG/10 ML VIAL IV ONE (15:13)
[2020-10-15] MEDS ORDERED: *HR* Heparin 10,000 UNIT/10 ML VIAL ONE (15:13)
[2020-10-15] MEDS ORDERED: 0.9 % Sodium Chloride 2,000 ML ONE (15:13)
[2020-10-15] MEDS ORDERED: *HR* FentaNYL (PF) 100 MCG/2 ML VIAL ONE (15:58)
[2020-10-15] MEDS ORDERED: *HR* Midazolam HCl 2 MG/2 ML VIAL ONE (15:58)
[2020-10-15] MEDS ORDERED: 0.9 % Sodium Chloride 1,000 ML IVC SCH (16:45)
[2020-10-15] MEDS ORDERED: Perflutren Lipid Microsphere 1.3 ML in 0.9 % Sodium Chloride 8.7 ML IVP PRN (17:00)
[2020-10-16 01:33] LABS: Hematocrit 38.7 % (37.5-50.1); Hemoglobin 12.9 g/dL (12.9-16.9); Mean Corpuscular HGB Conc 33.3 g/dL (31.6-35.5); Mean Corpuscular Hemoglobin 30.1 pg (28.0-33.3); Mean Corpuscular Volume 90.4 fL (83.0-100.0); Platelet Count 154 K/mcL (140-400); Red Blood Count 4.28 M/mcL (4.19-5.50); Red Cell Distribution Width 12.5 % (11.5-14.5); White Blood Count 4.9 K/mcL (4.3-11.1)
[2020-10-16 02:18] LABS: BUN/Creatinine Ratio 33 (6-26); Blood Urea Nitrogen 43 mg/dL (8-23); Calcium 9.5 mg/dL (8.6-10.3); Carbon Dioxide 24 mEq/L (23-29); Chloride 108 mEq/L (98-107); Glucose 109 mg/dL (70-105); Magnesium 2.2 mg/dL (1.6-2.6); Osmolality,Calculated 299 (280-300); Sodium 139 mEq/L (136-145); eGFR For African Americans > 60 (> 60); eGFR For Non-African Americans 54 (> 60)
[2020-10-16] MEDS: Metoprolol XL (24 HR) Succ 25 MG TAB.ER.24H PO SCH (07:51)
[2020-10-16] MEDS: Isosorbide MONOnitrate (24 HR) 30 MG TAB.ER.24H PO SCH (07:52)
[2020-10-16] MEDS: Aspirin 81 MG TAB.CHEW PO SCH (07:52)
[2020-10-16] MEDS ORDERED: lisinopriL 5 MG TABLET PO SCH (10:15)
[2020-10-16] MEDS: Sacubitril/Valsartan 24/26 MG 1 TABLET PO SCH ×2 (11:52→19:58)
[2020-10-16] MEDS ORDERED: *HR* Heparin 5,000 UNIT/ML VIAL IVP PRN ×2 (15:38)
[2020-10-16] MEDS ORDERED: *HR* Heparin 5,000 UNIT/ML VIAL IVP ONE (15:38)
[2020-10-16 15:39] LABS: INR 1.3; Prothrombin Time 14.5 Seconds (9.4-12.1)
[2020-10-16] MEDS: Heparin 25,000UNIT/250ML 1/2NS 25,000 UNIT/250 ML IV.SOLN IVC SCH (16:31)
[2020-10-16 17:04] LABS: Heparin anti-factor XA UFH < 0.04 IU/mL (0.30-0.70)
[2020-10-16 17:05] LABS: INR 1.2; Prothrombin Time 14.1 Seconds (9.4-12.1)
[2020-10-16] MEDS ORDERED: *HR* Heparin 5,000 UNIT/ML VIAL SQ SCH (18:00)
[2020-10-16] MEDS ORDERED: *HR* Warfarin 10 MG TABLET PO ONE (18:00)
[2020-10-16] MEDS: Warfarin perPT PO SCH (20:01)
[2020-10-17 01:18] LABS: Basophils % 0.3 %; Eosinophils # 0.2 K/mcL (0.0-0.6); Eosinophils % 3.5 %; Hematocrit 38.6 % (37.5-50.1); Immature Granulocytes % 0.2 % (0-4); Lymphocytes # 1.9 K/mcL (0.6-4.6); Lymphocytes % 32.2 %; Mean Corpuscular HGB Conc 33.7 g/dL (31.6-35.5); Mean Corpuscular Hemoglobin 30.2 pg (28.0-33.3); Mean Corpuscular Volume 89.6 fL (83.0-100.0); Mean Platelet Volume 10.2 fL (9.4-12.4); Monocytes # 0.6 K/mcL (0.0-1.3); Monocytes % 9.3 %; Neutrophils # 3.2 K/mcL (1.6-8.9); Platelet Count 153 K/mcL (140-400); Red Blood Count 4.31 M/mcL (4.19-5.50); Red Cell Distribution Width 12.5 % (11.5-14.5); Segmented Neutrophils % 54.5 %; White Blood Count 5.9 K/mcL (4.3-11.1)
[2020-10-17 01:27] LABS: INR 1.3; Prothrombin Time 15.4 Seconds (9.4-12.1)
[2020-10-17 01:40] LABS: BUN/Creatinine Ratio 36 (6-26); Blood Urea Nitrogen 38 mg/dL (8-23); Calcium 9.5 mg/dL (8.6-10.3); Carbon Dioxide 23 mEq/L (23-29); Chloride 107 mEq/L (98-107); Glucose 102 mg/dL (70-105); Osmolality,Calculated 295 (280-300); Potassium 4.1 mEq/L (3.5-5.1); Sodium 138 mEq/L (136-145); eGFR For African Americans > 60 (> 60); eGFR For Non-African Americans > 60 (> 60)
[2020-10-17] MEDS: Furosemide 40 MG TABLET PO SCH (09:38)
[2020-10-17] MEDS: Sacubitril/Valsartan 24/26 MG 1 TABLET PO SCH ×2 (09:38→19:51)
[2020-10-17] MEDS: Isosorbide MONOnitrate (24 HR) 30 MG TAB.ER.24H PO SCH (09:38)
[2020-10-17] MEDS: Metoprolol XL (24 HR) Succ 25 MG TAB.ER.24H PO SCH (09:39)
[2020-10-17] MEDS: Heparin 25,000UNIT/250ML 1/2NS 25,000 UNIT/250 ML IV.SOLN IVC SCH (12:48)
[2020-10-17] MEDS: Warfarin perPT PO SCH (17:29)
[2020-10-17] MEDS ORDERED: *HR* Warfarin 7.5 MG TABLET PO ONE (18:00)
[2020-10-18 05:33] LABS: INR 1.5; Prothrombin Time 17.6 Seconds (9.4-12.1)
[2020-10-18] MEDS: Isosorbide MONOnitrate (24 HR) 30 MG TAB.ER.24H PO SCH (08:48)
[2020-10-18] MEDS: Metoprolol XL (24 HR) Succ 25 MG TAB.ER.24H PO SCH (08:48)
[2020-10-18] MEDS: Furosemide 40 MG TABLET PO SCH (08:48)
[2020-10-18] MEDS: Sacubitril/Valsartan 24/26 MG 1 TABLET PO SCH ×2 (08:48→19:43)
[2020-10-18] MEDS: Heparin 25,000UNIT/250ML 1/2NS 25,000 UNIT/250 ML IV.SOLN IVC SCH ×2 (14:17→23:15)
[2020-10-18] MEDS ORDERED: *HR* Warfarin 7.5 MG TABLET PO ONE ×2 (18:00)
[2020-10-18] MEDS ORDERED: *HR* Warfarin 10 MG TABLET PO ONE (18:00)
[2020-10-18] MEDS: Warfarin perPT PO SCH (18:06)
[2020-10-19 03:08] LABS: INR 2.1; Prothrombin Time 23.9 Seconds (9.4-12.1)
[2020-10-19 07:32] VITALS: BP 116/63
[2020-10-19] MEDS: Furosemide 40 MG TABLET PO SCH (08:31)
[2020-10-19] MEDS: Sacubitril/Valsartan 24/26 MG 1 TABLET PO SCH (08:31)
[2020-10-19] MEDS: Metoprolol XL (24 HR) Succ 25 MG TAB.ER.24H PO SCH (08:32)
[2020-10-19] MEDS: Isosorbide MONOnitrate (24 HR) 30 MG TAB.ER.24H PO SCH (08:32)
[2020-10-19] MEDS ORDERED: *HR* Warfarin 5 MG TABLET PO ONE (18:00)
== END 2020-10-19 11:38 | disposition home or self-care (01) | DRG 280 ==
LOC: EMEROOARM 10:19 → 2ANU 10:19 → SUATTDRO 15:02 → 2ANU 15:41 → SUATTDRO 10-13 18:09
PROVIDERS: ADMIT Internal Medicine; ATTEND Internal Medicine

== ENCOUNTER 2021-03-28 13:34 | Observation (INO) ==
[2021-03-28 14:12] LABS: Basophils % 0.3 %; Eosinophils # 0.1 K/mcL (0.0-0.6); Eosinophils % 1.4 %; Hematocrit 41.1 % (37.5-50.1); Hemoglobin 13.9 g/dL (12.9-16.9); Immature Granulocytes % 0.3 % (0-4); Lymphocytes % 14.4 %; Mean Corpuscular HGB Conc 33.8 g/dL (31.6-35.5); Mean Corpuscular Hemoglobin 31.4 pg (28.0-33.3); Mean Corpuscular Volume 92.8 fL (83.0-100.0); Mean Platelet Volume 9.6 fL (9.4-12.4); Monocytes # 0.4 K/mcL (0.0-1.3); Monocytes % 5.7 %; Neutrophils # 5.6 K/mcL (1.6-8.9); Platelet Count 150 K/mcL (140-400); Red Blood Count 4.43 M/mcL (4.19-5.50); Red Cell Distribution Width 11.9 % (11.5-14.5); Segmented Neutrophils % 77.9 %; White Blood Count 7.2 K/mcL (4.3-11.1)
[2021-03-28 14:18] LABS: INR 1.1; Prothrombin Time 13.2 Seconds (9.4-12.1)
[2021-03-28 14:33] LABS: BUN/Creatinine Ratio 30 (6-26); Blood Urea Nitrogen 38 mg/dL (8-23); Carbon Dioxide 30 mEq/L (23-29); Chloride 106 mEq/L (98-107); Glucose 130 mg/dL (70-105); Osmolality,Calculated 305 (280-300); Potassium 4.9 mEq/L (3.5-5.1); Sodium 142 mEq/L (136-145); Troponin I < 0.03 ng/mL (< 0.04); eGFR For African Americans > 60 (> 60); eGFR For Non-African Americans 55 (> 60)
[2021-03-28 15:33] LABS: Bilirubin,Urine Negative (Negative); Blood,Urine Negative (Negative); Clarity,Urine Clear (Clear); Color,Urine Colorless (Yellow); Glucose,Urine (UA) Normal (Normal); Ketones,Urine Negative (Negative); Leukocyte Esterase,Urine Negative (Negative); Nitrite,Urine Negative (Negative); PH,Urine 5.5 pH Units (5.0-8.0); Protein,Urine Negative (Neg-Trace); Specific Gravity,Urine 1.011 (1.010-1.025); Urobilinogen,Urine Normal (Normal)
[2021-03-28] MEDS ORDERED: Acetaminophen 325 MG TABLET PO PRN (17:27)
[2021-03-28] MEDS ORDERED: Naloxone 0.4 MG/ML INJ IVP PRN (17:27)
[2021-03-28] MEDS ORDERED: Ondansetron 4 MG/2 ML VIAL IVP PRN (17:27)
[2021-03-28] MEDS ORDERED: Melatonin 3 MG TABLET PO PRN (17:27)
[2021-03-28] MEDS ORDERED: Nitroglycerin 0.4 MG TAB.SUBL SL PRN (18:08)
[2021-03-28] MEDS: Sacubitril/Valsartan 24/26 MG 1 TABLET PO SCH (20:29)
[2021-03-29 02:39] LABS: Hemoglobin 12.6 g/dL (12.9-16.9); Mean Corpuscular Hemoglobin 32.1 pg (28.0-33.3); Mean Corpuscular Volume 91.6 fL (83.0-100.0); Mean Platelet Volume 9.8 fL (9.4-12.4); Platelet Count 116 K/mcL (140-400); Red Blood Count 3.93 M/mcL (4.19-5.50); Red Cell Distribution Width 11.8 % (11.5-14.5); White Blood Count 5.2 K/mcL (4.3-11.1)
[2021-03-29 03:01] LABS: BUN/Creatinine Ratio 32 (6-26); Blood Urea Nitrogen 37 mg/dL (8-23); Calcium 9.1 mg/dL (8.6-10.3); Carbon Dioxide 26 mEq/L (23-29); Chloride 108 mEq/L (98-107); Glucose 95 mg/dL (70-105); Magnesium 1.9 mg/dL (1.6-2.6); Osmolality,Calculated 302 (280-300); Sodium 142 mEq/L (136-145); Troponin I < 0.03 ng/mL (< 0.04); eGFR For African Americans > 60 (> 60); eGFR For Non-African Americans > 60 (> 60)
[2021-03-29] MEDS ORDERED: *HR* Heparin 5,000 UNIT/ML VIAL SQ SCH (06:00)
[2021-03-29] MEDS ORDERED: Metoprolol XL (24 HR) Succ 25 MG TAB.ER.24H PO SCH (09:00)
[2021-03-29] MEDS ORDERED: Isosorbide MONOnitrate (24 HR) 60 MG TAB.ER.24H PO SCH (09:00)
[2021-03-29] MEDS: Sacubitril/Valsartan 24/26 MG 1 TABLET PO SCH (10:44)
[2021-03-29 11:59] VITALS: BP 113/68; PULSE 66; TEMP 97.7; O2SAT 97
== END 2021-03-29 14:12 | disposition home or self-care (01) ==
LOC: EMEROOARM 13:34 → 3BNU 13:34 → SUATTDRO 17:23 → 3BNU 18:23
PROVIDERS: ADMIT Internal Medicine; ATTEND Internal Medicine